=== PATIENT | female | born 1980 | race Caucasian/White ===

== ENCOUNTER 2018-01-10 08:31 | Emergency (ER) | payer MEDICAID ==
[~2018-01-10] VITALS: Ht 170.2 cm; Wt 90.7 kg
[~2018-01-10 08:31] MED LIST: AUGMENTIN 875-1 EACH PO; IBUPROFEN200 MG PO; IRON325 M1; NORCO 10-325 T1 EACH PO; NORCO 7.5-3251 EACH PO; PENICILLIN V P250 MG PO; PRENATAL-FOLIC1 EACH PO; ULTRAM50 MG PO; ZITHROMAX250 MG PO
[2018-01-10] MEDS ORDERED: WOMEN'S DAILY1 EACH PO (08:47)
[2018-01-10] MEDS ORDERED: ZITHROMAX250 MG PO (10:33)
[2018-01-10] MEDS ORDERED: NORCO 5-325 TA1 EACH PO (10:33)
== END 2018-01-10 11:00 | disposition home or self-care (01) ==
LOC: ED 08:31
DX: N39.0 Urinary tract infection, site not specified (principal); N70.91 Salpingitis, unspecified; F17.200 Nicotine dependence, unspecified, uncomplicated; Z79.899 Other long term (current) drug therapy
CPT/HCPCS: 76830; 76856; 80053; 81001; 84703; 85025; 87088; 96361; 96374; 96375; 99284; J1885; J2405; J7030

== ENCOUNTER 2022-09-16 01:20 | Emergency (ER) | payer OTHER ==
[~2022-09-16] VITALS: Ht 170.2 cm; Wt 86.2 kg
[~2022-09-16 01:20] MED LIST changes: +NORCO 5-325 TA1 EACH PO; +WOMEN'S DAILY1 EACH PO
[2022-09-16] MEDS ORDERED: ONDANSETRON ODT8 MG PO (03:04)
== END 2022-09-16 03:30 | disposition home or self-care (01) ==
LOC: ED 01:20
DX: R10.84 Generalized abdominal pain (principal); F17.200 Nicotine dependence, unspecified, uncomplicated
CPT/HCPCS: 36415; 80053; 81001; 83690; 83735; 84703; 85025; 96361; 96374; 99284-25; A9270; J2405; J7030

== ENCOUNTER 2022-09-17 10:11 | Inpatient (IN) | payer OTHER ==
[~2022-09-17] VITALS: Ht 170.2 cm; Wt 84.0 kg
[~2022-09-17 10:11] MED LIST changes: +ONDANSETRON ODT8 MG PO
--- OUTSIDE RECORDS SUMMARY | 2022-09-17 10:18 | XMS ---
PreManage Notification: RASHID CRUZ [employer] Events No recent Security Events currently on file CRITERIA MET - [facility] - 2 Visits in 30 Days CARE PROVIDERS There are no care providers on record at this time. Wally has no Care Guidelines for this patient. [place] [facility] (12 MO.) [facility] NOTE: Visits indicate total known visits. ED/C VISIT TRACKING (12 MO.) [facility]22 [facility] COMPLAINT: - VOMITING BLOOD 09/16/2022 01:21 VANIA Kerr OR TYPE: Emergency COMPLAINT: - VOMITING,FEVER,[place]ILLS INPATIENT VISIT TRACKING (12 MO.) No inpatient visits to display in this time frame [id number]
--- NOTE | 2022-09-17 15:00 | NUR ---
PT ARRIVES TO FLOOR VIA STRETCHER WITH ED RN - BEDSIDE REPORT RECEIVED. PT AAO, REPORTS NAUSEA AND PAIN. IV PATENT. NGT TO LIS, GREEN BILE IN SUCTION CANISTER. ADMIT ASSESSMENT COMPLETE. PT ORIENTED TO ROOM AND CALL LIGHT. UP TO BATHROOM TO VOID, STEADY ON FEET.
--- NOTE | 2022-09-17 15:30 | NUR ---
PRN MORPHINE ADMINISTERED FOR 5/10 PAIN IN ABD. PT DENIES FURTHER NEEDS. PT DENIES NICOTINE PATCH OR LOZENGE.
--- NOTE | 2022-09-17 16:45 | NUR ---
RN IN ROOM TO ASK FURTHER MODEL MAKER PLASTIC HISTORY AT REQUEST OF DR. FIGUEROA. PT STATES SHE HAS REGULAR MENSES THAT ARE NOT HEAVY OR OVERLY PAINFUL IN NATURE. LAST MENSES ENDED DAYS AGO AND PT DENIES UNPROTECTED SEX SINCE THEN. ONLY ABD HISTORY IS CSECTION AND MARIANO.
--- NOTE | 2022-09-17 17:10 | NUR ---
Spoke with pt. She is resting in bed with NG in place. 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 She [place] in [place] [employer] [facility] [employer]. She lives with her rashida and her 3 children. States she has let her food stamps lapse. She uses [employer] for energy assistance. Pt states she does not have issues getting in or out of her home. Plans on dc to home with rashida when medically cleared.
--- NOTE | 2022-09-17 18:22 | NUR ---
RN ROUNDING ON PT - ASLEEP IN BED WITH EYES CLOSED. RR EVEN AND UNLABORED. CALL LIGHT ON SIDE.
--- NOTE | 2022-09-17 19:25 | NUR ---
ASSUMED CARE OF PT UPON RECEIVING BEDSIDE HANDOFF REPORT FROM DAY NURSE. PT AOX4, NAD, NO C/O. NGT PATENT AND CONNECTED TO LIS. IVF INFUSING WITHOUT COMPLICATION. WILL CONTINUE TO MONITOR AND FOLLOW POC.
--- NOTE | 2022-09-17 20:06 | NUR ---
PLACED CALL TO TELEPHARMACY FOR ORDER/DOSE CLARIFICATION OF ANTI-EMETIC ORDER PRIOR TO ADMINISTRATION. PHARMACIST STATED 5MG COMPAZINE IS EFFECTIVE STARTING DOSE. WILL MEDICATE PER MAR, CONTINUE TO MONITOR AND FOLLOW POC.
--- NOTE | 2022-09-18 06:14 | NUR ---
PT WITH NO ACUTE OVERNIGHT EVENTS. VSS, NAD, NO C/O. PAIN AND NAUSEA WERE WELL-CONTROLLED. WILL HAND OFF CARE OF PT TO DAY NURSE DURING BEDSIDE REPORT.
--- NOTE | 2022-09-18 07:24 | NUR ---
REPORT RECEIVED FROM REAGAN VARGAS. PT RESTING IN BED ON BACK WITH HEAD OF BED AT 25 DEGREES WITH EYES CLOSED. RESPIRATIONS EVEN AND UNLABORED. NG TUBE IN PLACE WITH GREEN/BROWN DRAINAGED TO LOW INTERMITTANT WALL SUCTION. PT ALLOWED TO REST. CALL LIGHT WITHIN REACH. BED RAILS UP.
--- NOTE | 2022-09-18 09:13 | NUR ---
MORNING ASSESSMENT AND MEDICATION DUE. PT RETURNED FROM X-RAY. PT REPORTS NAUSEA AND STATES SHE "THREW UP WHILE I WAS DOWN THERE." SEE MAR FOR MEDICATION GIVEN. PT REPORTS 4/10 ABDOMINAL PAIN IN EPIGASTRIC AREA, PT DECLINES PAIN MEDICATION AT THIS TIME. IV FLUIDS RESTARTED. PT ALERT AND OREINTED TO ALL. ABDOMEN APPEARS MILDLY DISTENDED. BOWEL TONES RARE. ABDOMEN TENDER WITH PALPATION. UMBILICAL HERNA SEEN. NG TUBE REMAINS IN PLACE TO LOW INTERMITTAN SUCTION WITH MODERATE AMOUNTS OF GREEN DRAIANGE NOTED. NG SECURMENET DEVICE CHANGED IT WAS LOOSE. CEPACOL LOSANGE PROVIDED FOR SORE THROAT R/T NG TUBE. NO ADDITONAL REQUESTS OR COMPLAINTS. CALL [facility] WITHIN REACH. BED RAILS UP.
[2022-09-18] MEDS ORDERED: WOMEN'S DAILY1 EACH PO (09:52)
--- NOTE | 2022-09-18 09:52 | NUR ---
MED REC COMPLETE
--- NOTE | 2022-09-18 10:11 | NUR ---
THIS RN TO ROOM TO CHECK ON PT. DR. FIGUEROA UPDATED ON PT STATUS AND ASSESSMENT, NO NEW ORDERS AT THIS TIME. PT REPORTS 7/10 PAIN IN EPIGASTRIC AREA AND REQUESTS PAIN MEDICATION. PT STATES SHE DOES NOT WANT THE MORPHINE AND WOULD PREFERE TORADOL, EDUCATION DONE WITH PT REGARDING KIDNEY FUNCTION. PT VERBALIZES UNDERSTANDING AND STATES SHE WOULD STILL LIKE TORADOL. PT DENEIS ADDITIONAL REQUESTS OR COMPLAINTS. CALL LIGHT WITHIN REACH. BED RAILS UP.
--- NOTE | 2022-09-18 10:30 | NUR ---
INTO SEE PATIENT, PATIENT SITTING UP AT BEDSIDE. SHE STATES SHE IS WAITING TO SPEAK WITH DR. FIGUEROA ABOUT GOING TO THE OR THIS AFTERNOON. NO QUESTION OR CONCERNS AT THIS TIME FROM THE PATIENT. ADVISED THAT WE WILL BE BACK TO VISIT HER DURING HER STAY.
--- NOTE | 2022-09-18 11:14 | NUR ---
THIS RN TO ROOM TO CHECK ON PT. PT RESTING IN BED. CHG WIPE DOWN COMPLETE ANTICIPATING POSSIBLE SURGERY. PT REPORTS 2/10 PAIN IN EPIGASTRIC ABDOMEN THAT IS "MUCH BETTER." PT REPORS NAUSEA IS WELL CONTROLLED. PT UPDATED ON PLAN OF CARE. NG TUBE REMAINS TO LOW INTERMITTANT SUCTION. NO ADDITIONAL REQUESTS OR COMPLAINTS. CALL LIGHT WITHIN REACH. BED RAILS UP.
--- NOTE | 2022-09-18 11:27 | NUR ---
AT 1030 KNOCKED ON HER DOOR AND SHE SAID SHE JUST FINISHED HER SURGICAL WIPE DOWN. CHANGED HER GOWN. ASKED HER IF SHE WOULD LIKE TO SHAMPOO HER HAIR AND SHE SAID YES. SO SHAMPOOED HER HAIR. KATHY ALEJANDRE BRAIDED HER HAIR.
--- NOTE | 2022-09-18 12:21 | NUR ---
THIS RN TO ROOM TO CHECK ON PT. PT RESTING WITH EYES CLOSED, RESPIRATIONS EVEN AND UNLABORED. NG TUBE REMAINS TO LOW INTERMITTANT SUCTION. BED RAILS UP. CALL LIGHT WITHIN REACH. PT ALLOWED TO REST.
--- NOTE | 2022-09-18 13:13 | NUR ---
pT CALL LIGHT ON. IV PUMP ALARMING, IV FLUID BAG EMPTY. NEW BAG HUNG. PT UP TO RESTROOM, STEADY ON FEET WITH NO ASSISTANCE NEEDED. NG TUBE CLAMPED FOR AMBULATION. PT BACK TO BED AND NG TUBE RETURNED TO LOW INTERMITTANT SUCTION. CEPACOLE LOSANGE PROVIDED PER PT REQUEST. PT DENIES PAIN AND NAUSEA. NO ADDITIONAL REQUESTS OR COMPLAINTS. CALL LIGHT WITHIN REACH. BED RAILS UP.
--- NOTE | 2022-09-18 14:13 | NUR ---
AFTERNOON ASSESSMENT AND MEDICATION DUE. PT REPORTS 5/10 PAIN IN EPIGASTRIC ABDOMEN AND MILD NAUSEA. PT REQUESTS MEDICATIONS FOR BOTH. SEE MAR FOR MEDICATION GIVEN. PT REMAINS ALERT AND OREINTED TO ALL. ABDOMEN REMAINS SOFT AND MILDY TENDER IN EPIGASTRIC AREA. PT DENIES ANY FLANK PAIN. BOWEL TONES RARE. PT CONTINUES TO DENY ANY ABDOMINAL DISTENTION. NG TUBE REMAINS TO LOW INTERMITTANT SUCTION WITH GREEN DRAINAGE NOTED. CANSTER CHANGED, 75 ML OF GREEN FLUID RECORDED. PT VOIDING QUANITTY SUFFICIENT, ALTHOUGH URINE IS NOTED TO BE DARK YELLOW. UMBILICAL HERNA UNCHANGED IN APPEARANCE. PT DENIES ADDITIONAL REQUESTS OR COMPLAINTS. CALL LIGHT WITHIN REACH. BED RAILS UP.
--- NOTE | 2022-09-18 14:50 | NUR ---
DR. FIGUEROA TO BEDSIDE TO ROUND ON PT. PLAN OF CARE AND FOR SURGERY REVIEWED WITH PT. PT VERBALIZES UNDERSTANDING OF PLAN OF CARE AND PLAN FOR SUGERY. PT AND PTS MOTHER IN LAW STATE THEIR QUESTIONS HAVE BEEN ANSWERED AND AGREE TO PLAN OF CARE. ORDERS GIVEN FOR AN ADDITIONAL ABX, FLAGYL 500MG X1. ORDERS ENTERED, REPEAT BACK PERFORMED. CONSENT SIGNED. SCD'S IN PLACE. CHG WIPE DOWN COMPLETED. NO ADDTIONAL NEEDS AT THIS TIME. CHARGE NURSE UPDATED. CALL LIGHT WITHIN REACH. BED RAILS UP. FLAGYL IN PLACE PRE OP ABX, TO BE GIVEN IN OR.
--- NOTE | 2022-09-18 15:00 | NUR ---
PATIENT DID A SURGICAL WIPE DOWN. NEW GOWN AND SOCKS AND SCDS ARE ON. PATIENT IS LAYING IN BED WATCHING TV. MADE A PHONE CALL.
--- NOTE | 2022-09-18 15:54 | NUR ---
THIS RN TO ROOM TO CHECK ON PT. PT RESTING IN BED, PT UPDATED ON PLAN OF CARE AND STATES HER QUESTIONS HAVE BEEN ANSWERED. PT REPORTS PAIN AND NAUSEA ARE WELL CONTROLLED AND DENIES NEED FOR ADDITIONAL MEDICAITONS. NG TUBE REMAINS TO LOW INTERMITTANT SUCTION. NO ADDITIONAL REQUESTS OR COMPLAINTS. CALL LIGHT WITHIN REACH. BED RAILS UP.
--- NOTE | 2022-09-18 16:15 | NUR ---
REPORT GIVEN TO NELL WYATT RN. PT TRANSFERED SELF TO OR STRETCHER. NG TUBE CLAMPLED FOR TRANSFER. IV SWITCHED TO OR FLUIDS. NO ADDITIONAL REQUESTS OR QUESTIONS.
--- NOTE | 2022-09-18 17:06 | NUR ---
PT HERE FOR SMALL BOWEL OBSTRUCTION AND COMPLEXT PELVIC MASS. PT UP WITH STAND BY ASSIST FOR LINE AND TUBE MANAGEMENT THIS SHIFT. PT REMAINS NPO RELATED TO BOWEL OBSTRUCTION AND FOR PRE-OP THIS SHIFT. ABDOMEN SOFT BUT TENDER TO TOUCH. PRN PAIN AND NAUSEA MEDICATIONS GIVEN. BOWEL TONES RARE. NG TUBE IN PLACE WITH MODERATE AMOUNTS OF GREEN DRAINAGE. PT TO OR THIS AFTERNOON, AWAITING RETURN. PT VOIDING QUANTITY SUFFICIENT, ALTHOUGH MINIMAL. PT USES CALL LIGHT AND MAKES NEEDS KNOWN.
--- NOTE | 2022-09-18 20:45 | NUR ---
INFORMED BY PEANUT FARMER THAT pt IS TO GO TO CCU FOLLOWING SURGERY [facility] PRIMARY RN NICOLE MADE AWARE. FIANCEE TO FLOOR AND ASKING ABOUT pt, ASSISTED TO CCU BY PEANUT FARMER.
--- NOTE | 2022-09-18 21:06 | NUR ---
09/18/[id number] Kinza Butcher 2052 PATIENT INTO ROOM 129. REPORT RECIEVED FROM TAMIKO JORGENSEN. PATIENT NON REACTIVE. PATIENT BREATHING EQUAL AND UNLABORED. OXYGEN SATURATIONS ABOVE 95% ON 6 LITERS VIA NASAL CANNULA. SR ON TELE. INTERMITTENT SUCTION ON. SCD'S ON. IVF INFUSING. SURGICAL SITE IS CLEAN, DRY AND INTACT. LACIE DRAIN INTACT.
--- NOTE | 2022-09-18 21:30 | NUR ---
ASSUMED CARE OF PT UPON RECEIVING BEDSIDE HANDOFF REPORT FROM PACU NURSE. PT DROWSY, BUT EASILY AROUSED. VSS, NAD, NO C/O. WILL CONTINUE CLOSE MONITORING AND FOLLOW POC.
--- NOTE | 2022-09-19 01:06 | NUR ---
PT SLEEPING, EASILY AROUSED. VSS, NAD. PT DECREASING AFTER PAIN MEDS ADMINISTERED. ALL DRAINS AND LINES INTACT AND PATENT. NO CHANGE FROM PREVIOUS ASSESSMENT. WILL CONTINUE CLOSE MONITORING AND FOLLOW POC.
--- NOTE | 2022-09-19 03:55 | NUR ---
PT SLEEPING, EASILY AROUSED. VSS. NO CHANGE FROM PREVIOUS ASSESSMENT. WILL CONTINUE CLOSE MONITORING AND FOLLOW POC.
--- NOTE | 2022-09-19 06:40 | NUR ---
PT SLEEPING BUT EASILY AROUSED. NO ACUTE OVERNIGHT EVENTS. VSS, NAD, NO C/O. PT DEMONSTRATING GOOD USE OF IS, IVF INFUSING WITHOUT ISSUE. WILL HAND OFF CARE OF PT TO DAY NURSE DURING HANDOFF REPORT.
--- NOTE | 2022-09-19 07:30 | NUR ---
ASSUMING CARE OF PT. RECEIVED REPORT FROM ECHO KIRK.
--- NOTE | 2022-09-19 08:24 | NUR ---
VS AND INTAKE/OUTPUT COMPLETED. FRESH WASHCLOTH AND ICE PROVIDED.
--- NOTE | 2022-09-19 08:43 | NUR ---
MORNING ASSESSMENT COMPLETED. PT HAS NGT, VERMA CATHETER AND RIGHT SIDE ABD LACIE IN PLACE. PT COMPLAINT OF PAIN- PAIN MEDICATION PROVIDED. PT BOWEL TONES ACTIVE ON LEFT SIDE AND HYPO ACTIVE ON RIGHT. PT LUNG SOUNDS CLEAR. PT MOVES ALL FOUR EXTREMITIES INDEPENDENTLY. PT ALERT AND ORIENTED, PERRLA. PT HAS ACTEKOTE SURGICAL DRESSING MID ABD WITH SCANT DRAINAGE NOTED IN CENTER. PT DENIES PASSING GAS.
--- NOTE | 2022-09-19 09:30 | NUR ---
PT ASSISTED TO CHAIR WITH 1PA. PT TOLERATED WELL. CALL LIGHT AND PT BELONGINGS AT BEDSIDE. PT DENIES BLANKET AND OTHER NEEDS.
--- NOTE | 2022-09-19 10:12 | NUR ---
PT CALLED, REQUESTING TO MOVE BACK TO BED, STATING SHE IS NAUSEATED. PT 1PA BACK TO BED. PT TOLERATED WELL. CALL LIGHT WITHIN REACH AND BEDRAIL UP FOR SAFETY. PHARMACY CALLED NAUSEA MEDICATION OUT OF STOCK.
--- NOTE | 2022-09-19 11:49 | NUR ---
PER PT REQUEST, PAIN AND NAUSEA MEDICATION PROVIDED WELL THROAT LOZANGE. AFTERNOON ASSESSMENT COMPLETED WELL VS AND INTAKE/OUTPUT. PT LUNG SOUNDS CLEARN, BOWEL TONES ACTIVE ON LEFT AND HYPOACIVE ON RIGHT. PT HAS LACIE ON LEFT WITH 10ML OUT IN LAST THREE HOURS, NGT IN PLACE WITH 125ML OUT IN LAST THREE HOURS AND VERMA WITH 150ML OUT. PT SURGICAL DRESSING INTACT WITH NO CHANGE FROM EARLIER ASSESSMENT. PT RESTING IN BED WATCHING TV WITH CALL LIGHT WITHIN REACH AND BEDRAIL UP FOR SAFETY.
--- NOTE | 2022-09-19 12:35 | NUR ---
DR FIGUEROA AT BEDSIDE ASSESSING PT AND DISCUSSING PLAN OF CARE TYO MOVE TO MS FLOOR. PT VERBALIZED UNDERSTANDING.
--- NOTE | 2022-09-19 12:40 | NUR ---
VERMA CATHETER REMOVED. PT ASSISTED TO BATHROOM WITH 1PA.
--- NOTE | 2022-09-19 13:02 | NUR ---
REPORT GIVEN TO PARADISE KIRK.
--- NOTE | 2022-09-19 13:07 | NUR ---
REPORT RECEIVED FROM REAGAN VIERA. AWIATING PTS ARRIVAL TO MED/SURG
--- NOTE | 2022-09-19 13:21 | NUR ---
PT PLACED ON TELE#6. CCU INSTITUTION LIBRARIAN REMOVED. PT ASSISTED 1PA TO CHAIR. INFORMED OF TRANSFER TO CCU.
--- NOTE | 2022-09-19 13:28 | EKG ---
[facility] [address] [facility] [address] [place] [address] Signed Sinus tachycardia Nonspecific ST abnormality Abnormal ECG No previous ECGs available Confirmed by ASTER SANCHES MD ([id number]) on 09/19/2022 1:28:12 PM Electronically Signed By: ASTER SANCHES MD 09/19/22 1328 PATIENT NAME: RASHID CRUZ Electrocardiogram DATE OF : 84 PHYSICIAN: ASTER SANCHES MD REPORT #: [id number] REPORT IS CONFIDENTIAL AND NOT TO BE RELEASED WITHOUT AUTHORIZATION
--- NOTE | 2022-09-19 14:07 | NUR ---
PT ARRIVED FROM CCU BY CHAIR. PT REPORTS FEELING NAUSEATED AND WOULD LIKE TO GET BACK TO BED. 1 PERSON ASSIST FOR LINE AND TUBE MANGEMENT BACK TO BED. NG TUBE RETURNED TO LOW INTERMITTANT SCUTION. ZOFRAN GIVEN. PT REPORTS THESE ACTIONS "REALLY HELP" THE NAUSEA. PT REPORTS 8/10 PAIN IN ABDOMEN. SEE MAR FOR MEDICATION GIVEN. NEW IV STARTED PER PROTOCOL TO LEFT FORARM FOR IV ABX ADMINISTRATION, BRISK BLOOD RETURN NOTED. PT REPORTS SORNESS TO RIGHT AC IV SITE RELATED POTASSIUM. POTASSIUM INFUSION MOVED TO NEW IV SITE. IV ABX INFUSING THROUGH RIGHT AC IV. PT ALERT AND OREINTED TO ALL ALTHOUGH REPORTS DROWSINESS WITH PAIN MEDICATION. PT REPORTS PAIN IMPROVES TO 4/10 AFTER 20 MINUTES OF PAIN MEDICATION. NEW DRESSING PLACED TO NOSE/NG TUBE SITE CURRENT DRESSING IS LOOSE. ABDOMEN REMAINS SOFT, BUT TENDER. RIANA TONES ACTIVE ON LEFT SIDE, HYPOACTIVE ON RIGHT SIDE. MID LINE DRESSING SHOWS SCANT AMOUNT OF OLD DRAINAGE. AYLIN CONFIRMS AT BEDSIDE THAT NO NEW DRAIANGE IS SEEN. PT TAKIGN SIPS OF ICE WATER FOR COMFORT. SMALL AMOUNT OF SEROUSANGUINOUS DRAIANGE NOTED IN LACIE BULB, SITE REMAINS WNL. PT RESTING WITH EYES CLOSED, RESPIRATIONS EVEN AND UNLABORED. CALL LIGHT WITHIN REACH.B ED RAILS UP.
--- NOTE | 2022-09-19 15:05 | NUR ---
THIS RN TO ROOM TO CHECK ON PT. PT RESTINGIN BED WITH HEAD OF BED AT 26 DEGREES. PT REPORTS 6/10 PAIN IN ABDOMEN AND REQUESTS ADDITIONAL PAIN MEDICATION, SEE MAR FOR MEDICATION GIVEN. FAMILY AT BEDSIDE. PT REPORTS NASUEA REMAINS RESOLVED. ICE WATER REFILLED PER PT REQUEST. NG TUBE REMAINS OT LOW INTERMITTANT SUCTION. PT PLACED ON CPOX RELATED TO FREQUENT PAIN MEDICATION ADMINISTRATION. PT TOLERATING ROOM AIR WITH OXYGNE SATUARTION OF 96%. NO ADDITIONAL REQUESTS OR COMPLAINTS. CALL LIGHT WITHIN REACH. BED RAILS UP.
--- NOTE | 2022-09-19 16:13 | NUR ---
THIS RN TO ROOM TO CHECK ON PT. PT RESTING IN BED, SEMIFOWLER POSITION. PT REPORTS 3/10 PAIN IN ABDOMEN AND REPORTS PAIN IS WELL CONTROLLED. PT DENIES NEED FOR PAIN MEDICATION AT THIS TIME. PT REPORTS NASUEA CONTINUES TO BE RESOLVED. PT DENIES ADDITIONAL REQUESTS OR COMPLAINTS. CALL LIGHT WITHIN REACH.
--- NOTE | 2022-09-19 17:02 | NUR ---
PT CALL LIGHT ON. PT REQUESTS PAIN AND NAUSEA MEDICATIONS. PT REPORTS 5-6/10 ABDOMINAL SURGICAL SITE PAIN. SEE MAR FOR MEDICATION GIVEN. 1 PERSON ASSIST FOR LINE AND TUBE MANAGEMENT UP TO RESTROOM. PT STEADY ON FEET. PT VOIDS CLEAR YELLOW URINE WITHOUT ISSUE. PORTER CARE PER PT. STAND BY ASSIST BACK TO BED. PT VISITING WITH FRIENDS. CLEAR LIQUID TRAY DELIVERED TO PT. PT ENCROUAGED TO TAKE ANY PO INTAKE SLOWLY. NG TUBE REMAINS TO LOW INTERMITTANT SUCTION. NO ADDITIONAL REQUESTS OR COMPLAINTS. CALL LIGHT WIHTIN REACH. BED RAILS UP.
--- NOTE | 2022-09-19 17:44 | NUR ---
PT ARRIVED FROM CCU THIS SHIFT. POST OP DAY 1 AFTER MULTIPLE ABDOMINAL PROCEEDURES. PT UP WITH STAND BY ASSIST FOR LINE AND TUBE MANAGEMENT THIS SHIFT. PT ALLOWED TO HAVE CLEAR LIQUID DIET ALTHOUGH NAUSEA CONTINUES AND NG TUBE REMAINS IN PLACE TO LOW INTERMITTANT SUCTION. GREEN FLUID NOTED IN NG CANISTER THIS SHIFT. MIDLINE INCISION SHOWS SMALL AMOUNT OF OLD DRAINAGE, NO NEW DRAINAGE NOTED THIS SHIFT. LACIE DRAIN IN PLACE WITH SMALL AMOUNT OF SEROUSANGUINOUS DRAINAGE NOTED THIS SHIFT. PRN PAIN AND NAUSEA MEDICATIONS GIVEN FREQUENTLY. VERMA CATHETER REMOVED THIS SHIFT. PT VOIDING QUANITTY SUFFICIENT. PT TOLERATING ROOM AIR WITH OXGYEN SATURATION ABOVE 92%. IV ABX AND POSTASSIUM GIVEN THIS SHIFT. PT USES CALL LIGHT AND MAKES NEEDS KNOWN.
--- NOTE | 2022-09-19 17:56 | NUR ---
THIS RN TO ROOM TO CHECK ON PT. PT REPORTS ABDOMINAL PAIN IS "MUCH BETTER" NOW AT 3/10. PT DENIES NEED FOR ADDITIONAL PAIN MEDICATION. PT REPORTS NAUSEA HAS RESOLVED. NG TUBE REMAINS TO LOW INTERMITTANT SUCTION. OXGYEN SATURATION OF 96% ON ROOM AIR. PT DENIES ADDITIONAL REQUESTS OR COMPLAINTS. CALL LIGHT WITHIN REACH. BED RAILS UP.
--- NOTE | 2022-09-19 18:48 | NUR ---
THIS RN TO ROOM TO CHECK ON PT. PT RESTING WITH EYES CLOSED. RESPIRATIONS EVEN AND UNLABORED, OXYGEN SATURATIONS OF 96% ON ROOM AIR. CALL LIGHT WITHIN REACH. BED RAILS UP. PT ALLOWED TO REST.
--- NOTE | 2022-09-19 19:20 | NUR ---
SHIFT REPORT RECEIVED FROM PARADISE KIRK, PT APPEARS TO SLEEP, EYES CLOSED, RESP EVEN AND REG.
--- NOTE | 2022-09-19 20:26 | NUR ---
CALL LIGHT ANSWERED, pt UP SBA TO VOID. 270MLS DARK YELLOW/RAYNE COLORED URINE NOTED. pt BACK TO BED, NG TUBE RESUMED TO MEDIUM INTERMITTENT WALL SUCTION, PATENT WITH GREEN OUTPUT. LACIE DRAIN EMPTIED WITH 15MLS SEROSANGUINEOUS DRAINAGE. ABD DRESSING INTACT WITH SCANT SPOT SHADOWING. IV SITE WNL, FLUIDS INFUSING WNL. pt REPORTS SOME NAUSEA AND PAIN, PRIMARY RN NICOLE NOTIFIED. FRESH WATER PROVIDED. NO ADDITIONAL NEEDS OR CONCERNS AT THIS TIME. CALL LIGHT IN REACH.
--- NOTE | 2022-09-19 20:50 | NUR ---
4MG IV MORPHINE AND 4MG IV ZOFRAN GIVEN FOR REPORTED NAUSEA AND 7/10 ABD PAIN, pt REPORTS 5 IS TOLERABLE. pt EDUCATED ON BENEFITS OF MEDICATIONS AND VERBALIZED UNDERSTANDING. pt ALSO EDUCATED ON USE OF TORADOL IN PLACE OF NARCOTICS ONCE URINE OUTPUT IMPROVES NARCOTICS CAN SLOW BOWELS. pt VERBALIZED UNDERSTANDING. NO ADDITIONAL NEEDS OR CONCERNS AT THIS TIME, CPOX IN PLACE.CALL LIGHT IN REACH.
--- NOTE | 2022-09-19 21:43 | NUR ---
ROUNDED ON pt TO REASSESS PAIN, pt RESTING IN BED WITH EYES CLOSED AND ON RA, RR EVEN AND UNLABORED. NO DISTRESS NOTED. WILL MONITOR, CALL LIGHT IN REACH.
--- NOTE | 2022-09-19 23:00 | NUR ---
PT AWAKE AND ALERT, UP TO BR TO VOID 100ML RAYNE URINE, GAIT STEADY, BACK TO BED, ASSESSMENT COMPLETED, NEW FILTER TO NG TUBE PER GEORGINA RN, NG REMAINS MED INTERMITTANT SX, DRAINING GREEN FLUID, RIGHT ARM AC SL TENDER, PT DESIRES SL TO BE REMOVED, IV REMOVED PER GEORGINA RN INTACT. PT ATTEMPTING TO REST, FRESH WATER GIVEN.
--- NOTE | 2022-09-20 00:50 | NUR ---
PT APPEARS TO SLEEP, RESP EVEN AND REG, WITHOUT DISTRESS.
--- NOTE | 2022-09-20 01:00 | NUR ---
RN CALLED TO ROOM TO CHECK NG, REPORTS MAKING LOUDER SX NOISES, CONSULTED CHARGE NURSE, ALEC RN TO BEDSIDE, NG CHECKED AND APPEARS TO BE FUNCTIONING WELL, PT REASSURED AND ATTEMPTING TO REST.
--- NOTE | 2022-09-20 02:05 | NUR ---
PT AWAKE, UP TO BR TO VOID, VOIDED 300ML RAYNE URINE, BACK TO BED, REQUESTING PAIN MED, MEDICATED WITH MORPHINE 4MG IV PER ORDER, IV PATENT AND SITE INTACT. ABDOMINAL DRESSING WITH OLD SCANT DRAINAGE, LACIE PATENT AND DRAINING SERO SANG FLUID, VS STABLE, NG BACK TO SX WHEN SHE RETURNED TO ROOM, MED INTERMITANT SX, CONTS GREEN DRAINAGE. FRESH WATER GIVEN AND PT RESTING QUIETLY.
--- NOTE | 2022-09-20 02:11 | NUR ---
PT MEDICATED WITH ZOFRAN 4MG FOR REQUEST FOR NAUSEA, PT RESTING WITHOUT OTHER REQUESTS.
--- NOTE | 2022-09-20 03:25 | NUR ---
PT ASLEEP, RESP EVEN AND REG, WITHOUT DISTRESS.
--- NOTE | 2022-09-20 04:08 | NUR ---
CALL LIGHT ANSWERED, pt AWAKE AND REPORTS 7/10 PAIN TO ABD, PRN PAIN MEDICATION PROVIDED-SEE EMAR. VSS AND I&O'S CHARTED. NG TUBE CLAMPED BRIEFLY TO ALLOW pt TO VOID. pt BACK TO BED, NG TUBE RESUMED. NO ADDITIONAL NEEDS OR CONCERNS VERBALIZED, CALL LIGHT IN REACH.
--- NOTE | 2022-09-20 05:00 | NUR ---
PT ASLEEP, RESP REG WITHOUT REQUESTS.
--- NOTE | 2022-09-20 06:37 | NUR ---
PT AWAKE, ALERT, UP TO BR TO VOID, GAIT STEADY, BACK TO BED, REQUESTED MORPHINE AND NAUSEA MEDICINE, MED WITH 4MG MORPHINE FOR SURGICAL PAIN, IF PATENT, RT A/B GIVEN PER ORDER, ASSESSMENT COMPLETED.
--- NOTE | 2022-09-20 06:43 | NUR ---
PT MEDICATED WITH COMPAZINE 5MG FOR C/O NAUSEA PER REQUEST, NG APPEARS TO BE DRAINING WELL, PT RESTING QUIETLY WITH EYES CLOSED, WITHOUT DISTRESS.
--- NOTE | 2022-09-20 07:34 | NUR ---
REPORT RECEIVED FROM REAGAN RIVERA. PT RESTING IN BED, SEMIFOWLER POSITION, WITH EYES CLOSED. REPIRATIONS EVEN AND UNLABORED, OXYGEN SATURATION 95% ON CPOX. HEART RATE 80-90'S ON TELEMETRY MONITORING, NORMAL SINUS RYTHEM NOTED. PT ALLOWED TO REST. CALL LIGHT WITHIN REACH. BED RAILS UP.
--- NOTE | 2022-09-20 08:59 | NUR ---
MORNING ASSESSMENT AND MEDICATION DUE. PT RESTING IN BED, WATCHING TV AND TAKING SPIPS OF CLEAR LIQUID BREAKFAST. PT REPORTS NAUSEA AND 6/10 PAIN IN ABDOMEN. SEE MAR FOR MEDICATIONS GIVEN. PT REPORTS SHE DOSE NOT THINK HER NG TUBE IS WORKING. NG TUBE REMAINS AT THE SAME LEVEL AT NARES. LINE FLUSHED WITH 100ML TAP WATER. SUCTION REAPPLIED, 500ML GREEN FLUID REMOVED FROM STOMACH BY WALL SUCTION. PT REPORTS "THAT HELPS A LOT." NG TUBE RETURNED TO LOW INTERMITTANT WALL SUCTION. PT UP TO RESTROOM WITH STAND BY ASSIST, VOIDS 200ML CLEAR RAYNE URINE. PORTER CARE PER PT. PT UP TO CHAIR. LACIE DRAIN NOTED TO BE LOOSE AT SIGHT WITH STITCHES NO LONGER HOLDING DRAIN IN PLACE. NIRAJ REMAINS INCERTED TO STITCH POINT. DRAIN SEGURED TO DRESSING AND STAFF UPDATED TO BE CAUTIOUS WHEN MOVING PT. DRAIN EMPTIED OF 80ML SEROUSANGUINOUS DRAINAGE. MID LINE INCISION W/N/L WIHT NO NEW DRAINAGE NOTED. SMALL DIME SIZED SPOT OF OLD DRAINAGE/SHADOWING NOTED. BOWEL TONES RARE. ABDOMEN SOFT BUT TENDER TO TOUCH. TELEMETRY MONITORING REMAINS IN PLACE WITH HEART RATE 80-90'S WITH REST AND 100-120'S WITH ACTIVITY. OXGYEN SATURATION 96% ON ROOM AIR. CPOX IN PLACE. PT DEMONSRATES USE OF I.S. REACHIGN 2250ML X5. NO ADDITIONAL REQUESTS OR COMPLAINTS. CALL LIGHT WITHIN REACH. BED RAILS UP. WARM BLANKETS PROVIDED.
--- NOTE | 2022-09-20 10:25 | NUR ---
THIS RN TO ROOM TO CHECK ON PT. PT REPROTS SHE HAS STARTED HER PERIOD AND IS USING A TAMPON FROM HOME. PADS PROVIDED. PT CALLING FAMILY FOR SUPPLIES. PT REPORTS PAIN IS "MUCH BETTER" NOW AT 3/10 IN ABDOMEN, PT DENIES NEED FOR ADDITIONAL PAIN MEDICATION. PT REPORTS NAUSEA HAS RESOLVED. NG TUBE REMAINS TO LOW INTERMITTANT SUCTION. LACIE DRAIN REMAINS IN PLACE WITH SMALL AMOUNT OF SEROUS ANGUINOUS DRAINAGE NOTED IN BULB. NO ADDITIONAL REQUESTS OR COMPLAINTS. CALL LIGHT WITHIN REACH. BED RAILS UP.
--- NOTE | 2022-09-20 11:22 | NUR ---
THIS RN TO ROOM TO CHECK ON PT. PT RESTING IN BED, WATCHING TV AND VISITING WITH HER MOTHER. PT REPORTS PAIN REMAINS WELL CONTROLLED AT 3/10 AND DENIES NASUEA. 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 PT REPORTS SHE HAS BEEN TAKING SIPS OF ICE WATER. OXGYEN SATUARTION OF 96% ON ROOM AIR. NO ADDITIONAL REQUETS OR COMPLAINTS. CALL LIGHT WITHIN REACH. BED RAILS UP.
--- NOTE | 2022-09-20 12:02 | NUR ---
PT CALL LIGHT ON. PT REQUESTS ASSISTANCE UP TO RESTROOM. NG TUBE CLAMPED. PT UP TO RESTROOM WITH STAND BY ASSIST. PT VOIDS 2000ML RAYNE URINE. STAND BY ASSIST BACK TO BED. NG TUBE REUTRNE TO LOW INTERMITTANT SUCTION. PT REPORTS 6/10 PAIN AND INCREASING NASUEA AND REQUESTS MEDICATIONS, SEE MAR FOR MEDICATION GIVEN. NO ADDITIONAL REQUESTS OR COMPLAINTS. CALL LIGHT WITHIN REACH. BED RAILS UP. FAMILY AT BEDSIDE.
--- NOTE | 2022-09-20 12:38 | NUR ---
PT CALL LIGHT ON. PT REQUESTS ASSISTANCE UP TO RESTROOM. THIS RN TO ROOM. NG TUBE CLAMPED. PT AMBULATES TO RESTEROOM WITH STAND BY ASSIST. PORTER CARE PER PT. PT BACK TO BED. NG TUBE RETURNED TO LOW INTERMITTANT WALL SUCTION. OXGYEN SATURATIONS 98% ON ROOM AIR. PT REPORTS PAIN IS NOW 3/10 AND NAUSEA RESOLVED. PT TAKING SIPS OF CLEAR FLUIDS FOR LUNCH. NO ADDITIONAL REQUESTS OR COMPLAINTS. CALL LIGHT WITHIN REACH. BED RAILS UP.
--- NOTE | 2022-09-20 13:07 | NUR ---
DR FIGUEROA UPDATED ON PT STATUS AND ASSESSMENT INCLUDING LOOSE LACIE DRAIN, NG TUBE, THE START OF HER CYCLE, AND ASESSEMENT/PAIN/NAUSEA. ORDERS GIVEN TO DC TELE. ORDERS PLACED. TELEMETRY DC'D. NO ADDITONAL NEW ORDER AT THIS TIME. MD TO ROUND SOON.
--- NOTE | 2022-09-20 13:48 | NUR ---
THIS RN TO ROOM WITH DR. FIGUEROA FOR ROUNDS. PT UPDATD ON PLAN OF CARE. VERBALIZES UNDERSTANDING AND STATES HER QUESTIONS HAVE BEEN ANSWERED. DRESSING REMOVED FROM LACIE SITE BY . OPSITE APPLIED TO SECURE LACIE DRAIN. NO ADDITIONAL NEEDS AT THIS TIME. CALL LIGHT WITHIN REACH. BED RAILS UP.
--- NOTE | 2022-09-20 14:20 | NUR ---
AFTERNOON ASSESSMENT DUE. PT RESTING IN BED. PT REPORTS 6/10 PAIN IN ABDOMEN, SEE MAR FOR MEDICATION GIVEN. PT DENIES NAUSEA. PT ENCORUAGED TO AMBULATE AND STATES SHE WILL AFTER PAIN MEDICATION HAS TIME TO WORK. STAND BY ASSIST UP TO RESTROOM. PT VOIDS WITHOUT ISSUE. PORTER CARE PER PT. PT ALERT AND ORIENTD TO ALL. LUNG SOUNDS CLEAR. OXYGEN SATURATIONS REMAIN ABOVE 95%, CPOX DC'D. ABDOMEN REMAINS SOFT BUT TENDER WITH PALPATION. BOWEL TONES HYPOACTIVE THROUGHOUT. MID LINE DRESSING C/D/I WITH ONLY SCANT OLD SHADOWING, NO NEW DRAINAGE NOTED. LACIE DRAIN INTACT WITH 40ML SEROUSANGUINOUS DRAINAGE REMOVED FROM LACIE BULP, SITE WNL. 700ML LIGHT GREEN FLUID REMOVED FROM NG TUBE CANSITER, NEW CANISTER PLACED. NG TUBE REMAINS TO LOW INTERMITTAN SUCTION. NO ADDITIONAL REQUESTS OR COMPLAINTS AT THIS TIME. CALL LIGHT WIHTIN REACH. BED RAILS UP.
--- NOTE | 2022-09-20 16:03 | NUR ---
THIS RN TO ROOM TO CHECK ON PT. PT REPORTS SHE IS READY TO GET UP TO AMBLUATE. NG TUBE CLAMPED. PT UP TO RESTROOM AND THEN UP TO AMBULATE X1 LAP IN [place]. PT REPORTS "IT FEELS GOOD TO STRETCH MY LEGS." PT BACK TO ROOM. REPORTS MILD NAUSEA THAT STARTED PRIOR TO AMBULATION. NG TUBE RETURNED TO LOW INTERMITTANT SUCTION. ZOFRAN GIVEN. PT REPORTS PAIN HAS IMPROVED NOW 3/10 IN ABDOMEN. PT DENIES NEED FOR ADDITIONAL PAIN MEDICATION AT THIS TIME. NO ADDITIONAL REQUESTS OR COMPLAINTS. CALL LIGHT WITHIN REACH. BED RAILS UP.
--- NOTE | 2022-09-20 16:27 | NUR ---
POST OP DAY 2 AFTER MULTIPLE ABDOMINAL PROCEEDURES. PT UP WITH STAND BY ASSIST AND LINE AND TUBE MANAGEMENT THIS SHIFT TO CHAIR, RESTROOM AND TO AMBLUATE IN THE [place]. PT ALLOWED TO HAVE CLEAR LIQUID DIET ALTHOUGH NAUSEA CONTINUES AND NG TUBE REMAINS IN PLACE TO LOW INTERMITTANT SUCTION. GREEN FLUID NOTED IN NG CANISTER THIS SHIFT. MIDLINE INCISION SHOWS SMALL AMOUNT OF OLD DRAINAGE, NO NEW DRAINAGE NOTED THIS SHIFT. LACIE DRAIN IN PLACE WITH MODERATE AMOUNT OF SEROUSANGUINOUS DRAINAGE NOTED THIS SHIFT, DRAIN LOOSE AT INCERTION SITE AND SECURED WITH OPSITE, DRESSING REMOVED BY MD. PRN PAIN AND NAUSEA MEDICATIONS GIVEN FREQUENTLY. PRN PAIN MEDICATIONS ADJUSTED IN ATTMPET TO AVOID OPOIDS. PT HAS STARTED PER CYCLE. PT VOIDING QUANTITY SUFFICIENT. PT USES CALL LIGHT AND MAKES NEEDS KNOWN.
--- NOTE | 2022-09-20 16:31 | NUR ---
DR FIGUEROA CALLED REGARDING TORADOL FALLING OFF THE EMAR. DR. FIGUEROA STATES TO CONTINUE TORADOL FOR NUMBER OF DOSES RECCOMENDED BY PHARMACIST. GAYLE PHARMACIST CALLED AND UPDATED AND STATES SHE WILL ADJUST DOSES ALLOWED AND REORDER MEDICATION.
--- NOTE | 2022-09-20 17:13 | NUR ---
PT CALL LIGHT ON. PT REPORTS INCREASED NASUEA AND BELIEVES HER NG TUBE IS NOT LONGER WORKING. MINMIAL FLUID NOTED IN NG CANISTER, ATYPICAL OF OUTPUT TODAY. ATTEMPTED TO FLUSH NG TUBE WITH TAP WATER BY GRAVITY, WATER DOES NOT FLUSH BY GRAVITY, 100ML TAP WATER FLUSHED WITH PLUNGER. ATTEMPTED TO FLUSH 20ML BY GRAVITY, STILL DOES NOT FLUSH. RETURNED TUBE TO LOW INTERMITTANT SUCTION, NO RETURN SEEN. NG TUBE FLUSHED WITH AIR, PT BURPS BUT NO RETURN IS SEEN THROUGH NG TUBE TO LOW INTERMITTAN WALL SUCTION. REPOSITIONING ATTEMPTED, NO CHANGE. DR. FIGUEROA CALLED, ORDERS GIVEN FOR SINGLE VIEW CHEST X-RAY, ORDERS ENTERED. X-RAY CALLED. PT REPORTS "FEELING REALLY CRUMMY." IMAGING PERFORMED. IMAGE SENT TO DR. FIGUEROA PER HIS REQUEST. ORDERS GIVEN TO WITHDRAWL NG TUBE AT LEAS 8CM. NG TUBE WITHDRAWN 8CM, NO RETURN. WITH DRAWN 10CM, NO RETURN, WITHDRAWN 12CM, NO RETURN. LINE FLUSHED AGAIN WITH AIR. "POPPING" SENSATION FELT BY PT AND NURSE. 250ML GREEN RETURN IMMIDIATLY NOTED. PT REPROTS FEELING "MUCH BETTER." PT UP TO RESTROOM WITH STAND BY ASSIST. VOIDS WITHOUT ISSUE. NG TUBE REMAINS TO LOW INTERMITTAN SUCTION. SECURMENT DEVICE IN PLACE. NO ADDITIONAL REQUESTS OR COMPLAINTS. CALL LIGHT WITHIN REACH. BED RAILS UP.
--- NOTE | 2022-09-20 18:13 | NUR ---
THIS RN TO ROOM TO CHECK ON PT. PT REPROTS NG TUBE IS MAKING HER GAG, ICE CHIPS PROVIDED. OLD CEPACOL [place] AT BEDSIDE, PT ENCORUAGED TO USE THIS. PT REPORTS THESE HELP WITH THE FEEING OF GAGING. NG TUBE CANISTER HAS NOW COLLECTED 650ML GREEN FLUID, RECORDED. LOW INTERMITTAN SUCTION REMAINS IN PLACE. LACIE DRAIN EMIED OF 20ML SEROUSANGUINOUS FLUID. PT DENIES ADDITIONAL REQUESTS OR COMPLAINTS. CALL LIGHT WIHTIN REACH. BED RAILS UP.
--- NOTE | 2022-09-20 18:42 | NUR ---
PT CALL LIGHT ON. PT REQUESTS ASSISTANCE UP TO RESTROOM. NG TUBE CLAMPTED. PT UP TO RESTROOM. PORTER CARE PER PT. PT BACK TO BED AND NG TUBE RETURNED TO LOW INTERMITTAN SUCTION. PT REPORTS PAIN AT IV SITE. IV ASSESSED, PAIN WITH FLUSHING, IV DC'D PER PROTOCOL. NEW IV STARTED PER PROTOCOL TO LEFT HAND. PT TOELRATED WELL. BRISK BLOOD RETURN NOTED. IV FLUIDS RESUMED. PT REPORTS NASUEA, SEE MAR FOR MEDICATION GIVEN. PT REPORTS 5/10 ABDOMINAL PAIN, PT DENIES NEED FOR MEDICAITON AT THIS TIME. PT REPORTS 7/10 SORE THROAT, SEE MAR FOR MEDICATION GIVEN. NO ADDITIONAL REQUESTS OR COMPLAINTS. CALL LIGHT TITO REACH. BED RAILS UP.
--- NOTE | 2022-09-20 19:27 | NUR ---
PT RESTING IN BED, ALERT AND WITHOUT REQUESTS, BEDSIDE REPORT RECEIVED PER PARADISE RN, NG TO INTERMITTENT SX, APPEARS TO BE DRAINING WELL.
--- NOTE | 2022-09-20 20:17 | NUR ---
CALL LIGHT ANSWERED. SBA TO RESTROOM FOR 550 ML VOID AND BACK TO BED. NEW GOWN APPLIED. COOL CLOTH PROVIDED. pt DENIES NAUSEA. IVF INFUSING ORDERED WNL. NGT FLUSHED WITH 60 MLS, RETURN NOTED, GREEN DRAINGE FLOWING TO SUCTION CANNISTER. CALL LIGHT IN REACH. pt DENIES NEEDS.
--- NOTE | 2022-09-20 21:54 | NUR ---
CALL LIGHT ANSWERED. SBA TO BATHROOM. PATIENT IS BACK IN BED. NGT IS BACK ON. NOTICED PATIENT GAGGED HOLDING THE EMESIS BAG AND STATE "CAN YOU GET MY NURSE PLEASE".PRIMARY RN NOTIFIED.
--- NOTE | 2022-09-20 22:11 | NUR ---
RN TO ROOM TO MEDICATE PT PER HER REQUEST FOR NAUSEA AND PAIN, PT MEDICATED WITH TORADOL 30MG IV PER ORDER AND ZOFRAN 8 MG IV PER ORDER
--- NOTE | 2022-09-20 22:26 | NUR ---
PT ALERT, RESTING IN BED, VS, I/O AND ASSESSMENT DONE, PT UP TO BR TO VOID, CUSTOMS AGENT STAND BY ASSIST, PT'S GAIT STEADY, WITHOUT DIZZINESS, PT PLANS TO AMBULATED IN [place] SOON.
--- NOTE | 2022-09-20 22:32 | NUR ---
pt UP AMBULATING IN HALLWAY WITH ZEB MERCADO.
--- NOTE | 2022-09-20 22:45 | NUR ---
PATIENT GOT UP TO USE THE RESTROOM THEN PATIENT WALKED AROUND THE HALLWAY X1. PATIENT IS BACK IN BED. NGT IS BACK ON. CHANGED GREEN BLANKET AND SHEET. WARM BLANKET PROVIDED.
--- NOTE | 2022-09-21 00:49 | NUR ---
CALL LIGHT ANSWERED. SBA TO RESTROOM FOR VOID AND BACK TO BED. pt STATES "IT'S OKAY NOW" REGARDING PAIN. RATES PAIN 4/10 IN ABDOMEN. DENIES NEEDS AT THIS TIME. NGT TO INT WALL SUCTION. CALL LIGHT IN REACH.
--- NOTE | 2022-09-21 01:35 | NUR ---
PT APPEARS TO SLEEP, RESP EVEN AND REG.
--- NOTE | 2022-09-21 02:55 | NUR ---
PT UP AMBULATING IN THE [place], TOLERATED WELL, REPORTS PASSING GAS WITH AMBULATION.
--- NOTE | 2022-09-21 03:07 | NUR ---
PATIENT CALLED TO USE THE BATHROOM. SBA. PATIENT WALKED AROUND THE NURSE'S STATION X2. PATIENT IS BACK IN BED. NGT IS BACK ON. ICE WATER REFRESHED. PRIMARY RN WAS WITH PATIENT.
--- NOTE | 2022-09-21 03:07 | NUR ---
PT BACK TO BED, REQUESTING NAUSEA MEDICATION, MEDICATED WITH COMPAZINE 5 MG PER ORDER, PT REQUESTING PAIN MEDICATION, PT OFFERED TYLENOL IV AND AGREES.
--- NOTE | 2022-09-21 03:17 | NUR ---
PT RESTING IN BED, REQUESTING TYLENOL FOR PAIN, MEDICATED WITH IV TYLENOL PER ORDER, IV PATENT AND INFUSING WELL.
--- NOTE | 2022-09-21 03:47 | NUR ---
PT CALLED, IV ALARMING, OFIRMEV COMPLETE. REQUESTED BATHROOM, BACK TO BED, NG MIWS. ALL PERSONAL SUPPLIES WITHIN REACH. FRESH COLD WASHCLOTH GIVEN.
--- NOTE | 2022-09-21 05:44 | NUR ---
CALL LIGHT ANSWERED. SBA TO RESTROOM FOR VOID AND BACK TO BED. pt COMPLAINS OF PAIN FROM COUGHING. 01/25. PRIMARY RN NOTIFIED. LACIE DRAIN EMPTIED, 10 MLS SS FLUID. NGT FLUSHED WITH 60 MLS TAP WATER AND 50 MLS AIR. BRISK RETURN AFTER AIR BOLUS OF GREEN FLUID IN SUCTION CANNISTER, SUBSTANCE CONTINUES TO FILL INTO CANNISTER. VSS. pt REQUESTING NAUSEA MEDICATION WELL. CALL LIGHT IN REACH.
--- NOTE | 2022-09-21 07:12 | NUR ---
REPORT RECEIVED FROM REAGAN RIVERA. PT RESTING IN BED WITH EYES CLOSED, RESPIRTATIONS EVEN AND UNLABORED. HEAD OF BED AT 25 DEGREES. NG TUBE TO LOW INTERMITTANT SUCTION WITH FLUCUATION OF FLUID NOTED IN SUCTION TUBING. NO ADDITIONAL NEEDS AT THIS TIME. BED RAILS UP. CALL LIGHT WITHIN REACH. PT ALLOWED TO REST.
--- NOTE | 2022-09-21 08:41 | NUR ---
MORNING ASSESSMENT AND MEDICAITON DUE. PT HAS BEEN UP TO AMBULATE IN THE [place] X3 LAPS THIS MORNING AND HAS BEEN UP TO CHAIR. PT REPORTS 3/10 PAIN IN ABDOMEN AND MILD NASUEA THAT IS "PROBABLY FROM THIS TUBE." (NG TUBE). PT DENIES NEED FOR PAIN OR NAUSEA MEDICATION. PT REPORTS SHE IS PASSING GAS WHILE UP AND WALKING. DR. FIGUEROA TO BEDSIDE AND STATES NG TUBE CAN BE REMOVED NG TUBE REMOVED BY DR FIGUEROA. PT REPORTS "OH NOW I FEEL MUCH BETTER." 600ML GREEN FLUID REMOVED FROM NG CANISTER. PT ENCORUAGED TO TAKE PO INTAKE SLOWLY AND TO CONTINUE TO AMBULATE. MIDLINE INCISION WNL WITH ONLY SCANT OLD SHADOWING NOTED. NO NEW DRAINAGE NOTED. LACIE DRAIN IN PLACE WIHT SMALL AMOUNT OF SEROUS ANGUINOUS FLUID REMAINING IN LACIE BULB. BOWEL TONES HYPOACTIVE. ABDOMEN SOFT BUT TENDER IN PLACES. PT UP TO RESTROOM INDEPENDANTLY, STEADY ON FEET, NO ASSISTANCE NEEDED. NO ADDITIONAL REQUESTS OR COMPLAINTS. CALL LIGHT WITHIN REACH. BED RAILS UP.
--- NOTE | 2022-09-21 10:25 | NUR ---
THIS RN TO ROOM TO CHECK ON PT. PT UP TO AMBULATE ANOTHER 3LAPS IN [place]. PT REPORTS 3/10 PAIN IN ABDOMEN THAT IS WELL CONTROLLED. PT DENIES NEED FOR ADDITIONAL PAIN MEDICATION AT THIS TIME. PT DENIES NAUSEA. PT REQUESTS 7-UP, PROVIDED. PT ENCORUAED TO GO SLOW WITH PO INTAKE AND VERBALIZES UNDERSTANDING. PT DENIES ADDITONAL REQUESTS OR COMPLAINTS. CALL LIGHT WITHIN REACH. BED RAILS UP.
--- NOTE | 2022-09-21 11:12 | NUR ---
THIS RN TO ROOM TO CHECK ON PT. PT RESTING IN BED AFTER ADDITIONAL AMBULATION. PT REPROTS 5/10 ABDOMINAL PAIN AND REQUESTS MEDICATION, SEE MAR FOR MEDICATION GIVEN. PT DENIES NAUSEA. NO ADDITIONAL REQUESTS OR COMPLAINTS. CALL LIGHT WITHIN REACH. BED RAILS UP.
--- NOTE | 2022-09-21 12:15 | NUR ---
THIS RN TO ROOM TO CHECK ON PT. PT UP TO AMBULATE IN [place] X 4 LAPS. PT TAKING SIPS OF CLEAR LIQUID TRAY AND CONTINUES TO REPORTS NAUSEA IS WELL CONTROLLED. PT REPORTS 3/10 PAIN AND STATES THE TYLENOL "REALLY HELPED." PT DENIES ADDITIONAL REQUESTS OR COMPLAINTS. CALL LIGHT WITHIN REACH.
--- NOTE | 2022-09-21 13:10 | NUR ---
THIS RN TO ROOM TO CHECK ON PT. PT SITTING ON EDGE OF BED. REPORTS SHE WAS UP TO AMBULATE IN [place] AND IS NOW VISITING WITH HER FRIEND. PT REPOTS 3/10 PAIN THAT CONTINUES TO BE WELL CONTROLLED. PT TIFFANY LUNA. NO ADDITIONAL REQUESTS OR COMPLAINTS. CALL LIGHT WITHIN REACH. BED RAILS UP.
--- NOTE | 2022-09-21 13:19 | NUR ---
PT ALERT, ORIENTED AND JUST BACK FROM AMBULATING IN [place]. PT FEELING MUCH BETTER TODAY. KNOWS SHE HAD SURGERY, BUT WAS UNSURE ALL THAT WAS DONE. HAD GOOD, POSITIVE TIME CONNECTING WITH PT. PT FEELS WELL CARED FOR, REQUESTED PRAYER. GAVE G.POST AND WILL FOLLOW
--- NOTE | 2022-09-21 14:41 | NUR ---
AFTERNOON ASSESSMENT DUE. PT UP TO AMBULATE IN [place] AGAIN. 20 LAPS SO FAR THIS SHIFT. PT DENIES NAUSEA AND REPORTS FEELINGS OF HUNGER, PT REPORTS HER STOMACH HAS BEEN RUMBLING AND SHE WOULD BE INTERESED IN TRYING SOME FULL LIQUIDS IF POSSIBLE. WILL CONSULT MD. PT REPORTS 5/10 PAIN IN ABDOMEN WITH ACTIVITY, SEE MAR FOR MEDICATION GIVEN. ABDOMEN SOFT AND TENDER ONLY AT SURGICAL SITES. BOWEL TONES HYPOACTIVE BUT PT REPORTS HEARING AND FEELING HER STOMACH/BOWEL MOVE. PT REPORTS FEELING "PUFFY" AND REPORTS "TIGHT" HANDS WITH OPENING AND CLOSING. DRESSING TO MIDLINE INCISION UNCHNAGED. ALCIE DRAIN SHOWS 10ML SEROUS ANGUINOUS FLUID IN BULB, SITE WNL. PT CHEERFUL, TALKING AND TELLING STORIES. PT REPORTS FEELING "MUCH BETTER THAN WHEN I CAME IN." NO ADDITIONAL REQUESTS OR COMPLAINTS. CALL LIGHT WITHIN REACH. BED RAILS UP.
--- NOTE | 2022-09-21 15:05 | NUR ---
PATIENT DOING WELL, AMBULATING IN THE [place]. PER MD NOTE PATIENT TO HOPEFULLY ADVANCE DIET TODAY. NO CHAGE IN DISCHARGE PLAN AT THIS TIME.
--- NOTE | 2022-09-21 15:39 | NUR ---
THIS RN TO ROOM TO CHECK ON PT. PT RESTING IN BED. PT REPORTS 3/10 PAIN WITH ACITVITY. PT DENIES NAUSEA. PT UP TO RESTROOM INDEPENDANTLY. PORTER CARE PER PT. PT VISITING WITH HER MOTHER IN [place]. NO ADDITIONAL REQUESTS OR COMPLAINTS. CALL LIGHT WITHIN REACH. BED RAILS UP.
--- NOTE | 2022-09-21 16:33 | NUR ---
CALL RECEIVED FROM DR. FIGUEROA, ORDERS GIVEN TO DC'D PTS IV FLUIDS AND ADVANCE PT TO FULL LIQUID DIET. ORDERS ENTERED, REPEAT BACK PERFORMED. PT UPDATED.
--- NOTE | 2022-09-21 16:41 | NUR ---
POST OP DAY 3 AFTER MULTIPLE ABDOMINAL PROCEEDURES. PT INDEPENDANT IN [place] AND ROOM THIS SHIFT, UP TO AMBULATE X +20 LAPS IN [place]. PT ADVANED FROM CLEAR LIQUID DIET TO FULL LIQUID DIET THIS SHIFT AFTER NG TUBE WAS DC'D THIS SHIFT. PT TOELRATING WELL WITH MINIMAL NAUSEA. PT IS PASSING GAS, NO BM YET. MIDLINE INCISION SHOWS SMALL AMOUNT OF OLD DRAINAGE. NO NEW DRAINAGE NOTED THIS SHIFT. LACIE DRAIN IN PLACE WITH SMALL AMOUNT OF SEROUSANGUINOUS DRAINAGE NOTED THIS SHIFT, DRAIN REMAINS SECURE. MINIMAL PRN PAIN MEDICAITONS GIVEN, TYLENOL AND TORADOL ONLY. IV SALINE LOCKED PT IS TOLERATEING PO INTAKE. PT HAS STARTED PER CYCLE. PT VOIDING QUANTITY SUFICIENT. PT USES CALL LIGHT AND MAKES NEEDS KNOWN.
--- NOTE | 2022-09-21 18:35 | NUR ---
PATIENT CALLED WITH CALL LIGHT TO NURSE STATION. PT JUST HAD TAKEN A SHOWER AND HER DRESSING IS WET. PER PARADISE KIRK SHE HAD ALREADY TALKED TO AND WAS ADVISED TO REMOVE THE DRESSING AND DRY THE AREA. STERI STRIPS APPLIED TO REINFORCE THE UMIBILICAL AREA.
--- NOTE | 2022-09-21 18:40 | NUR ---
REAGAN SCOTT CAME TO RETRIEVE THIS RN PTS DRESSING BECAME WET IN THE SHOWER. DR. FIGUEROA CALLED. ORDERS GIVEN TO REMOVE MID LINE DRESSING AND LEAVE OPEN TO AIR. DRESSING REMOVED AND UMBILICAL AREA REINFORCED BY STERI STRIPS BY REAGAN SCOTT. THIS RN NOW TO ROOM TO ASSESS WOUND. STERI STRIPS INTACT. EDGES WELL APROXIMATED, NO DRAINAGE SEEN. PT UPDATED ON PLAN OF CARE. PT DENIES BOTH PAIN AND NAUSEA. PT REPORTS HER FULL LIQUID DINNER "WENT REALLY WELL." PT SMILING AND TALKING WITH FRIENDS/FAMILY ON THE PHONE. NO ADDITIONAL REQUESTS OR COMPLAINTS. CALL LIGHT WITHIN REACH. BED RAILS UP.
--- NOTE | 2022-09-21 18:58 | NUR ---
TODAY THE PATIENT DID TWENTY-ONE LAPS AROUND MED SURG.
--- NOTE | 2022-09-21 19:05 | NUR ---
SHIFT REPORT RECEIVED FROM PARADISE RN, PT ALERT AND TALKING ON THE PHONE, PT WITHOUT COMPLAINTS AT THIS TIME, TWO RN CHECK OF ABDOMINAL INCISION DONE, STERI STRIPS INTACT, NO NOTED DRAINAGE, PT CHEERFUL WITH PROGRESS TODAY.
--- NOTE | 2022-09-21 19:50 | NUR ---
PT REQUESTING PAIN MED, PT DESIRES TO ALTERNATE TYLENOL AND TORADOL ONLY AT THIS TIME, NOTED IV TYLENOL NO LONGER ON THE EMAR, TELEPHONE CALL TO DR FIGUEROA, ORDERS RECEIVED FOR TYLENOL 1000MG PO Q 6 HOURS PRN.
--- NOTE | 2022-09-21 19:50 | NUR ---
PT AWAKE, REQUESTING TYLENOL FOR PAIN, NOTED IV TYLENOL D'DIONY, TC TO DR FIGUEROA, ORDER RECEIVED FOR PO TYLENOL 1000MG Q 6 HOURS.
--- NOTE | 2022-09-21 20:17 | NUR ---
PT MEDICATED WITH 1000MG TYLENOL FOR INCISIONAL PAIN, VS DONE AND NOTED ELEVATED BP, PLAN TO RECHECK AFTER PAIN MED AND REST, PT RECENTLY AMBULATED IN [place], ASSESSMENT COMPLETED, I/O DONE, PT PLEASED WITH HER PROGRESS TODAY. LACIE EMPTIED FOR 5 ML SERO SANG FLUID.
--- NOTE | 2022-09-21 22:11 | NUR ---
CALL LIGHT ANSWERED. pt COMPLAINS OF NAUSEA, NO EMESIS, NO GAGGING, DRY HEAVING NOTED. pt STATES "I THINK I JUST FEEL A LITTLE QUEASY FROM THE PILLS AND NOT BEING USED TO IT ON MY STOMACH". pt REPORTS FLATUS. PRN ZOFRAN 4 MG ADMINISTERED IV, SL WNL. ICE WATER REFILLED. pt TAKING SIPS. CALL LIGHT IN REACH.
--- NOTE | 2022-09-21 22:45 | NUR ---
PT RESTING IN BED, WITHOUT REQUEST, BP RECHECKED AND NOW IS 157/89 HR 89, PLAN TO MONITOR.
--- NOTE | 2022-09-22 00:31 | NUR ---
PT AWAKE, AMB IN [place], BACK TO ROOM REQUESTING TORADOL FOR PAIN AND NAUSEA MED FOR MID NAUSEA WITHOUT EMESIS, MED WITH TORODOL AND COMPAZINE PER ORDER. PT RECENTLY VOIDED 1000ML LIGHT YELLOW URINE.
--- NOTE | 2022-09-22 01:45 | NUR ---
PT ASLEEP, RESP EVEN AND REG, WITHOUT DISTRESS
--- NOTE | 2022-09-22 03:45 | NUR ---
PT ASLEEP AT THIS TIME, RESP EVEN AND REG.
--- NOTE | 2022-09-22 04:18 | NUR ---
CALL LIGHT ANSWERED. pt REPORTS HAVING A BM, LIQUID, GREEN IN COLOR PER pt. pt FLUSHED TOILET, VERBALIZES UNDERSTANDING TO LEAVE IN TOILET FOR NURSING TO VIEW AND DOCUMENT. NO ADDITIONAL REQUESTS.
--- NOTE | 2022-09-22 04:30 | NUR ---
PT AWAKE AND ALERT, UP AMB IN ROOM, HAD ANOTHER LIQUID LIGHT BROWN BM (FIRST ONE SHE FLUSHED), PT VOIDED ALSO, PT DENIES NEED FOR PAIN MED, ASSESSMENT COMPLETED, PT ATTEMPTING TO REST, PT HOPEFUL TO GO HOME TODAY.
--- NOTE | 2022-09-22 07:16 | NUR ---
REPORT RECEIVED FROM REAGAN RIVERA. PT SITITNG UP IN BED, PT DENIES PAIN AND NAUSEA. PT DENIES ANY REQUESTS OR COMPLAINTS AT THIS TIME. CALL LIGHT WITHIN REACH. BED RAILS UP.
--- NOTE | 2022-09-22 09:39 | NUR ---
MORNING ASSESSMENT AND MEDICAITON DUE. PT UP TO AMBULATE IN [place] X5 LAPS. PT REPORTS 3/10 PAIN IN ABDOMEN WITH ACTIVITY AND DENIES NEED FOR PAIN MEDICATION. PT DENIES NAUSEA. PT REPORTS SHE WAS ABLE TO EAT ALL HER BREAKFAST WITH OUT NAUSEA. PT REPORTS SHE CONTINUES TO PASS GAS. 2 BOWEL MOVEMENTS NOTED LAST SHIFT, NONE YET THIS SHIFT. ABDOMEN SOFT, TENDER IN PLACES. BOWEL TONES HYPOACTIVE. MIDLINE INCISION WNL WITH STERI STRIS INTACT AND EDGES WELL APROXIMATED. LACIE DRAIN WNL WITH SCANT AMOUNT OF SEROUSANGUINOUS DRAINAGE NOTED IN LACIE BULP. PT DENIES FLANK PAIN. MEDICATION GIVEN. I.S. USE DEMONSTRATED WITH PT REACHIGN 2250ML X5. PT DENIES ADDITIONAL REQUESTS OR CMPLAINTS. PT STATES SHE WOULD LIKE TO GO HOME SOON. WILL CONSULT MD REGARDING ADVANCING DIET. NO ADDITONAL REQEUSTS OR COMPLAINTS. CALL LIGHT WIHTIN REACH. BED RAILS UP.
--- NOTE | 2022-09-22 10:33 | NUR ---
THIS RN TO ROOM TO CHECK ON PT. PT UP TO AMBULATE IN [place] AGAIN X [address] FIGUEROA CALLED AND UPDATED ON PT STATUS. ORDERS GIVEN TO ADVANCE DIET TO REGULAR. NEW ORDERS ENTERED. LUNCH ORDER PER PT PREFERENCE PLACED WITH DIETARY. PT DENIES NAUSEA AND REPORTS PAIN REMAINS WELL CONTROLLED. NO ADDITIONAL REQUESTS OR COMPLAINTS AT THIS TIME. CALL LIGHT WITHIN REACH.
--- NOTE | 2022-09-22 11:00 | NUR ---
Spoke with Radha. She is hoping to go home today or tomorrow. Walking frequently in the halls. Gave her coloring books, color pencils, and a dot to dot book. She denies needs.
--- NOTE | 2022-09-22 11:26 | NUR ---
PT CALL LIGHT ON. PT REQUESTS PAIN MEDICATION FOR 6/10 PAIN IN ABDOMEN. PT RPEORTS SHE HAS AMBULATED X 8 LAPS SO FAR THIS MORNING. SEE MAR FOR MEDICATION GIVEN. PT DENIES NAUSEA. PT UPDATED ON PLAN OF CARE AND VERBLAIZES UNDERSTANDING. NO ADDITONAL REQUESTS OR COMPLAINTS. CALL LIGHT WITHIN REACH. BED RAILS UP.
--- NOTE | 2022-09-22 12:30 | NUR ---
THIS RN TO ROOM TO CHECK ON PT. PT EATING SANDWICH AND MASHEDPOTATOES FOR LUNCH. PT DENIES NAUSEA AND STATES PAIN HAS IMPROVED NOW 07/28. PT DENIES NEED FOR ADDITIONAL PAIN MEDICAITONS. NO ADDITIONAL REQUESTS OR COMPLAINTS. CALL LIGHT WITHIN REACH. BED RAILS UP.
--- NOTE | 2022-09-22 13:20 | NUR ---
PT FINISHED WITH LUNCH. TOLERATED REGULAR DIET WITHOUT NAUSEA OR INCREASED PAIN. PT REPORTS 2/10 ABDOMINAL PAIN AT THIS TIME THAT IS WELL CONTROLLED. DR. FIGUEROA UPDATED ON PT STATUS, STATES TO HAVE SUTURE REMOVAL KIT AND BAINDAID AT BEDSIDE FOR POSSIBLE LACIE DRAIN REMOVAL, SUPPLIES AT BEDSIDE. PT UPDATED ON PLAN OF CARE. PT WATCHING TV AND TALKING WITH FAMILY ON THE PHONE. NO ADDITIONAL REQUESTS OR COMPLAINTS. CALL LIGHT WITHIN REACH.
--- NOTE | 2022-09-22 13:46 | NUR ---
PT ALERT, ORIENTED SITTING UP IN BED WATCHING TV. PT FEELS MUCH BETTER, HAS BM'S, PASSING GAS AND LONGING TO DC TO HOME. GAVE ENCOURAGEMENT, HAD PRAYER WITH PT. PT GOT EMOTIONAL, THANKED ME FOR VISIT. WILL FOLLOW
--- NOTE | 2022-09-22 14:50 | NUR ---
AFTERNOON ASSESSMENT DUE. PT UP AND WALKING IN [place] AND AROUND ROOM. PT DENIES NAUSEA AND REPROTS 3/10 ABDOMINAL PAIN THAT IS WELL CONTROLLED. PT REPORTS SHE CONTINUES TO PASS GAS. PT UP TO RESTROOM AND HAS ANOTHER SOFT BROWN BOWEL MOVEMENT. PORTER CARE PER PT. BOWEL TONES ACTIVE. ABDOMEN SOFT AND MINIMALLY TENDER. MIDLINE INCISION REMAINS WNL WITH EDGES WELL APROXIMATED AND STERI STRIPS INTACT. LACIE DRAIN WNL WITH MINIMAL SEROUS ANGUINOUS DRAINAGE NOTED IN BULB. <10ML AT THIS TIME. PT REQUESTS TO SHOWER. SHOWER SET UP. IV COVERED. PT UP TO SHOWER INDEPENDANTLY, NO ASSISTANCE NEEDED. NO ADDITIONAL REQUESTS OR COMPLAINTS. CALL LIGHT WITHIN REACH.
--- NOTE | 2022-09-22 16:20 | NUR ---
THIS RN TO ROOM TO CHECK ON PT. PT REPORTS 3/10 ABDOMINAL PAIN THAT IS WELL CONTROLLED. PT DENIES NAUSEA. PT TALKING WITH FAMILY ON THE PHONE AND COLORING. [employer]OM[employer]BILE SALESMAN ASSISTED PT TO BRAID HAIR. PT REPORTS HER SHOWER FELT "REALLY GOOD." PT CONTINUES TO STATE SHE IS READY FOR DISCHARGE. AWAITING MD ORDER. NO ADDITIONAL REQUESTS OR COMPLAINTS. CALL LIGHT WITHIN REACH. BED RAILS UP.
--- NOTE | 2022-09-22 17:28 | NUR ---
THIS RN TO ROOM TO WITH DR. FIGUEROA FOR ROUNDS. DISCHAGE ORDERS GIVEN. LACIE DRAIN REMOVED BY DR. FIGUEROA AND BANDAID APPLIED. PT VERBALIZES UNDERSTANDING OF DISCHARGE INSTRUCTIONS FROM MD. IV DC'D PER PROTOCOL. GAUZE AND COBSAM APPLIED. PT UP TO GET DRESSED, NO ASSISTANCE NEEDED. NO ADDITIONAL REQUESTS OR COMPLAINTS. CALL LIGHT [facility].
[2022-09-22] MEDS ORDERED: MOTRIN IB200 MG PO (17:31)
[2022-09-22] MEDS ORDERED: ACETAMINOPHEN500 MG PO (17:31)
--- NOTE | 2022-09-22 18:05 | NUR ---
PT READY FOR DISCHRAGE. VITAL SIGNS STABLE. PT REPORTS PAIN AND NAUSEA ARE WELL CONTROLLED. DISCHARGE INSTRUCTIONS REVIEWED WITH PT, PTS MOTHER IN LAW AND PTS DAUGHTER. PT VERBALIZES UNDERSTANDING OF INSTRUCTIONS, MEDICAITONS AND FOLLOW UP. NOTED THAT PTS FOLLOW UP WIHT DR FIGUEROA IS NOT FOR [address] FIGUEROA CONSULTED AND STATES HE WILL SPEAK TO HIS OFFICE STAFF ABOUT MOVING UP APT. PT INSTRUCTED TO CALL DR. FIGUEROA'S OFFICE TOMORROW. PT VERBALIZES UNDERSTANDING. PT TRANSFERS SELF TO WHEELCHAIR AND IS WHEELED FROM MED/SURG. NO ADDITIONAL REQUESTS OR CONCERNS.
--- NOTE | 2022-09-23 13:20 | HP ---
[facility] [address], [place] [address] Signed ADMISSION DATE: 09/17/2022 REASON FOR ADMISSION: Bowel obstruction, complex pelvic masses. HISTORY OF PRESENT ILLNESS: This 42-year-old white woman presented to the emergency room today and evaluated by Dr. Mich Grant with persistent vomiting and crampy abdominal pain. She had been seen in the ER within the past 24 hours with similar symptoms thought likely related to gastroenteritis. She has been unable to stop vomiting since the discharge from the ER and did see some hematemesis with her most recent episode of vomiting. She has had no fever, though she did report chills. She had crampy abdominal pain in the upper abdomen and Zofran that had been given was of little benefit. Per evaluation by Dr. Grant showed her to have no significant abdominal distention. The abdomen was soft throughout without sign of peritonitis. She was tachycardic with a heart rate of 115 as confirmed on EKG, but no evidence of worrisome arrhythmia. A plain x-ray was obtained of the chest, which was normal. She did undergo CT scan of the abdomen confirming a small bowel obstruction with a transition point in the central pelvis adjacent to the uterus and right adnexa. There was right hydrosalpinx suggested and a multiloculated cystic mass in the superior margin of the uterus and left ovary measuring 7.3 cm. A fat containing umbilical hernia was noted without incarceration of hollow viscus. Her evaluation showed lab studies which included a white count of 10.3, hematocrit of 45.6. Normal electrolytes. Creatinine 1.15, alkaline phosphatase 74. Liver enzymes were otherwise normal. Urinalysis was normal. Her tox screen was negative except for marijuana. The patient has had abdominal surgery in the past including cholecystectomy by laparoscopic approach. She had x1 and has had right ankle operation in the past. ALLERGIES: She has no known drug allergies. MEDICATIONS: Her only medications at the time of admission included Zofran. SOCIAL HISTORY: [place] has three [place] Electronically Signed By: ALFA FIGUEROA MD 09/23/22 1320 PATIENT NAME: RASHID CRUZ HISTORY AND PHYSICAL DATE OF : 84 REPORT #: [id number] PHYSICIAN: ALFA FIGUEROA MD PCP: NO PRIMARY CARE PHYSICIAN REPORT IS CONFIDENTIAL AND NOT TO BE RELEASED WITHOUT AUTHORIZATION [facility] [address], [place] [address] Signed REVIEW OF SYSTEMS: She denies any back pain particularly. She has had no vaginal bleeding. She does have menstrual periods. She has no dysphagia or known hematuria. PHYSICAL EXAMINATION: GENERAL: A pleasant white woman who looks to be in mild discomfort related to nasogastric tube placement. Nasogastric tube shows bilious fluid. NECK: Trachea is midline. CHEST: Shows normal respiratory excursion. Pulse is regular. ABDOMEN: Nondistended, flat, and easily palpated. There is no palpable mass and no tenderness at this time. EXTREMITIES: Show no clubbing, cyanosis, or edema. LABORATORY DATA: Lab studies were as previously described. I have reviewed her CT scan in detail. A complex multicystic pelvic mass is noted and a small bowel obstruction centered into the low pelvis, possibly related to the gynecologic findings. A CA-125 was requested and is still pending. Lab studies as previously described. Troponin highly sensitive at 21.7, which was normal. Serologies negative for COVID disease or RSV or influenza. ASSESSMENT: The patient has small-bowel obstruction much of the small bowel and obstruction appears to be in the ileum and may or may not be related to the pelvic findings. A nasogastric tube has appropriately been placed and is well positioned and is decompressing the stomach. She is admitted at this time to undergo nasogastric tube decompression, fluid resuscitation, pain control and so forth. There is a high probability she will require laparotomy to remedy this problem of bowel obstruction. Concordant to this is the concept of the complex cystic ovarian lesions, left greater than right in size. A CA-125 is pending and likely will be available tomorrow. I discussed with her the possibility of pelvic malignancy, though it is uncertain at this point. It may be that her bowel obstruction is completely unrelated to the pelvic findings. We will provide additional support as necessary and reconsider for possible operative therapy tomorrow depending on whether or not she clears her obstructive problem with the aforementioned approaches. Electronically Signed By: ALFA FIGUEROA MD 09/23/22 1320 PATIENT NAME: RASHID CRUZ HISTORY AND PHYSICAL DATE OF : 84 REPORT #: [id number] PHYSICIAN: ALFA FIGUEROA MD PCP: NO PRIMARY CARE PHYSICIAN REPORT IS CONFIDENTIAL AND NOT TO BE RELEASED WITHOUT AUTHORIZATION [facility] [address] [place] [id number] Signed Alfa Figueroa MD JM/MODL /[id number] cc: Dr. Mich Grant Copies: ~ Electronically Signed By: ALFA FIGUEROA MD 09/23/22 1320 PATIENT NAME: RASHID CRUZ HISTORY AND PHYSICAL DATE OF : [birth year] REPORT #: [id number] PHYSICIAN: ALFA FIGUEROA MD PCP: NO PRIMARY CARE PHYSICIAN REPORT IS CONFIDENTIAL AND NOT TO BE RELEASED WITHOUT AUTHORIZATION
--- NOTE | 2022-09-23 13:20 | OR ---
[facility] [address], [place] [address] Signed DATE OF OPERATION: 09/18/2022 SURGEON: Jose Figueroa MD PREOPERATIVE DIAGNOSES: 1. Complete distal small bowel obstruction. 2. Complex pelvic mass including bilateral hydrosalpinx. 3. Incarcerated incisional hernia in region of umbilicus. POSTOPERATIVE DIAGNOSES: 1. Complete small bowel obstruction related to dense inflammatory adhesions of the ileum in relation to complex pelvic mass. 2. Incarcerated incisional hernia with incarcerated omentum. 3. Bilateral hydrosalpinx with chronic inflammatory change and a reasonably normal uterus. 4. Dilated appendix. PROCEDURE: 1. Exploration of abdomen for reduction of incarcerated incisional hernia with partial omentectomy. 2. Lysis of adhesions (complex) with segmental small-bowel resection of the ileum with end-to-end ileoileostomy. 3. Repair of incisional hernia. 4. Excision of complex pelvic cystic mass with bilateral salpingo-oophorectomy. 5. Placement of pelvic drain. 6. Appendectomy. ANESTHESIA: General endotracheal, Carmen Lopes CRNA INDICATIONS: This 42-year-old white woman presented yesterday to the emergency room with high-grade distal small bowel obstruction. A CT scan was performed, which showed proximal dilation of bowel loops and distal decompression of the portion of ileum. Additionally noted was complex pelvic cystic mass with bilateral ovarian cystic changes and at least right hydrosalpinx. She had no evidence of ureteral obstruction. She was admitted and given fluid resuscitation and the nasogastric tube decompression. The CA-125 was found to be normal. Given her high-grade obstruction and without any progress despite nasogastric tube decompression, I have recommended laparotomy with remedy of the bowel obstruction and assessment and treatment of the complex adnexal cystic disease. The risks of Electronically Signed By: JOSE FIGUEROA MD 09/23/22 1320 PATIENT NAME: RASHID CRUZ OPERATIVE REPORT DATE OF : [birth year] REPORT #: [id number] PHYSICIAN: JOSE FIGUEROA MD PCP: NO PRIMARY CARE PHYSICIAN REPORT IS CONFIDENTIAL AND NOT TO BE RELEASED WITHOUT AUTHORIZATION [facility] [address], [place] [address] Signed bleeding, infection, ureteral injury, need for bowel resection and possibility of malignancy related to the pelvic cystic disease was reviewed with the patient and her [id number]. They understand and she wishes to proceed. Additionally, the patient has a non-reducible 4 cm hernia at the umbilicus, which on CT scan includes omentum. Remedy of this problem will be undertaken as well. FINDINGS: The incarcerated hernia at the umbilicus related to prior incision did have Prolene mesh associated with the defect. It was somewhat difficult to reduce the hernia though with midline fascial transection, it ultimately could be reduced. The incarcerated portion was somewhat ischemic and on that basis, a partial omentectomy was undertaken. Closure of the hernia defect was at conclusion of the procedure in continuity with the midline fascia. The small bowel was indeed very obstructed distally related to fibrotic dense adhesions to the complex pelvic cystic mass. Freeing of the small bowel from the mass allowed it to be withdrawn more fully and had angulation deformity, chronic scarring and dense fibrotic cicatrix to it. Ultimately, segmental resection was required with end-to-end anastomosis. Mobilization of the right colon was undertaken noting a retrocecal appendix, which although not acutely inflamed, did have dilation and resection was deemed advisable on that basis. The complex cystic mass was approximately 9 cm and was directly adherent to the mesentery of the rectosigmoid. It was excised completely. It generally had benign features. The mesenteric defect in the rectosigmoid did not cause ischemic changes to the rectum or sigmoid and the defect was closed. Additionally, the uterus itself was quite chronically inflamed in the surrounding areas and two small clear periuterine cystic lesions were excised. She had bilateral hydrosalpinx, likely related to infection from the past and bilateral salpingo-oophorectomy in continuity with the associated cystic changes was undertaken. The operation was prolonged, complicated, and difficult on the basis of density of fibrosis and extent of operation, it was accomplished safely. Blood loss was at least 400 mL. A drain was placed in the pelvis. DESCRIPTION OF PROCEDURE: The patient was brought to the operating room, given a general endotracheal anesthetic. Preoperative antibiotic Ancef and Flagyl had been given. Sequential compression device Electronically Signed By: JOSE FIGUEROA MD 09/23/22 1320 PATIENT NAME: RASHID CRUZ OPERATIVE REPORT DATE OF : 84 REPORT #: [id number] PHYSICIAN: JOSE FIGUEROA MD PCP: NO PRIMARY CARE PHYSICIAN REPORT IS CONFIDENTIAL AND NOT TO BE RELEASED WITHOUT AUTHORIZATION [facility] [address], [place] [address] Signed stockings were used and heparin subcutaneously administered. A Packer catheter was placed. A nasogastric tube was already in place. The abdomen was prepared with chlorhexidine solution and draped sterilely. A low midline incision was made extending the incision around the incarcerated umbilical hernia. Dissection was undertaken in this area more fully and found to have densely adherent omentum into the chronic hernia sac. The fascia was ultimately incised, but this surprising difficulty in reducing the portion of incarcerated omentum was noted. A Prolene suture was noted, which was removed. Once the fascia was fully incised and the omental herniation that withdrawn, the portion of omentum did appear ischemic. It was later resected and passed for pathology. The dilated proximal small bowel loops were manipulated out of the abdomen and examination of the pelvis undertaken. A dense inflammatory cicatrix was noted deep in the pelvis, which was the cause of the obstruction. The contorted bowel loops of ileum were densely adherent to a large pelvic mass. These were freed from the pelvic mass without rupturing of the cystic mass. 100 mL of pelvic fluid was sent for cytology on the possibility of malignancy related to the cystic mass. A Bookwalter retractor was attached to the table allowing for good exposure. Small bowel loops were packed superiorly. The cystic mass was densely adherent to the small bowel and with various maneuvers including electrocautery, blunt and sharp dissection, the segment of small bowel was freed from the pelvic mass freeing the small bowel entirely. It was elevated out of the way and had chronic scar tissue. No sign of carcinomatosis and angulation deformities, which would preclude reasonable remedy of the loop. The loop was set aside anticipating resection later. Examination of the pelvis showed a dense pelvic mass to be difficult to discern from the uterus proper. Considerable inflammatory changes were noted in the areas considered the adnexa. The complex pelvic mass likely emanated from the left ovary. It was dissected free as much as possible and found it to be completely adherent to the rectosigmoid mesentery. This was dissected free with as much care as possible so as to minimize mesenteric blood flow compromise to the rectosigmoid. Some drainage of the fluid was noted, which did improve the ease of the dissection. The cystic mass was ultimately excised completely and found to be likely the left adnexal origin. The left salpinx and presumably left ovary were excised in continuity with the cystic mass securing the fallopian tube adjacent to the uterus with 0 Vicryl suture ligature. Explantation of that portion of the mass was undertaken. Examination further showed a complex hydrosalpinx densely matted to surrounding tissue on the right side. This was dissected free with all due care, ultimately freeing the hydrosalpinx and presumably it was associated over a period. The infundibulopelvic ligament was secured with clamps and 0-silk ties Electronically Signed By: JOSE FIGUEROA MD 09/23/22 1320 PATIENT NAME: RASHID CRUZ OPERATIVE REPORT DATE OF : 84 REPORT #: [id number] PHYSICIAN: JOSE FIGUEROA MD PCP: NO PRIMARY CARE PHYSICIAN REPORT IS CONFIDENTIAL AND NOT TO BE RELEASED WITHOUT AUTHORIZATION [facility] [address], [place] [address] Signed isolating the tube and ovarian remnant with its cystic changes. The right salpinx was secured with tonsil clamps, divided, and doubly suture ligated adjacent to the uterus itself. Irrigation was undertaken. There was no known injury to the ureters or elsewhere, though the base of the pelvis was impressively densely scarred. Irrigation was undertaken more fully. Small clips had been used for hemostasis as necessary as well. The pelvis was then packed with laparotomy packs. Attention was turned towards the small bowel. As mentioned previously, the distal ileum had dense scarring including portions of scar that had been excised to free it from the pelvic mass. Segmental resection was deemed the most advisable course of action though the proximal bowel was somewhat dilated in the terminal ileum, completely decompressed. The cecum was freed from the pelvic sidewall as well as the right colon by incising the white line of Toldt and bluntly the colon. The appendix was encountered and rather elongated and somewhat dilated and although not acutely inflamed, deemed advisable for resection. The mesoappendix was secured with two clips and ultimately silk tie isolating the base of the appendix. The base of the appendix was crushed and milked distally and a 3-0 Vicryl tie used to secure the crush jovan. The appendix was amputated and the mucosal portions cauterized and the stump inverted with a 3-0 silk suture. Irrigation was undertaken more fully. By this point, the ileum was well mobilized from the lateral sidewall and positioned well for anastomosis and resection. An area of viable and normal ilium approximately 8 cm from the ileocecal valve was identified as was the more proximal segment of small bowel that was completely viable, though somewhat dilated from the obstructive process. Mesentery corresponding to the segment for resection was scored and mesenteric blood vessels secured with hemostats and vascular pedicles ligated with 0-silk ties. A YOANNA 60 mm device was used to transect the segment of bowel, which measured approximately 15 cm in length. An end-to-end ileal ileostomy was then undertaken in two-layer technique with interrupted 3-0 silk suture for the serosal layer and interrupted 3-0 Vicryl for the mucosal layer. Mesenteric defect was secured with interrupted 3-0 silk suture. Irrigation was undertaken more fully. Attention was then turned towards the pelvis once again. The mesenteric defect of the rectosigmoid was secured with interrupted 3-0 silk sutures to avoid transmesenteric herniation. Two segments of marginal omentum that were reduced from the incarcerated hernia were secured with clamps and 0-silk ties and portion of omentum resected and passed off for final pathology. Irrigation in the pelvis showed good hemostasis overall. However, Katelin powder was insufflated into the depths of the pelvis for added hemostatic benefit. Through a left lower quadrant stab incision, a 7 mm flat Aldo drain was placed into the depths of the pelvis, secured to the skin and later attached to bulb suction. The small bowel viscera were found to be completely viable as was the rectosigmoid and the bowel was replaced to a natural anatomic configuration into the pelvis. The omentum was replaced over the abdominal Electronically Signed By: JOSE FIGUEROA MD 09/23/22 1320 PATIENT NAME: RASHID CRUZ OPERATIVE REPORT DATE OF : 84 REPORT #: [id number] PHYSICIAN: JOSE FIGUEROA MD PCP: NO PRIMARY CARE PHYSICIAN REPORT IS CONFIDENTIAL AND NOT TO BE RELEASED WITHOUT AUTHORIZATION [facility] [address], [place] [address] Signed contents and plans made for closure. The hernia defect at the umbilicus was further dissected free and freeing the hernia sac completely. The fascia was reapproximated with running bidirectional #1 PDS suture. Subcutaneous tissue was copiously irrigated and the skin closed with a running subcuticular 3-0 Vicryl. Steri-Strips were applied as was an Acticoat dressing. The drain was applied to bulb suction. Blood loss was about 400 mL. Sponge, needle, and instrument counts were reported as correct x3. At conclusion of procedure, the marketing officer did perform bilateral TAP blocks for postoperative analgesic benefit. She was extubated and taken to the recovery room in good condition. Jose Figueroa MD JM/MODL /[id number] cc: Mich Grant Copies: ~ Electronically Signed By: JOSE FIGUEROA MD 09/23/22 1320 PATIENT NAME: RASHID CRUZ OPERATIVE REPORT DATE OF : 84 REPORT #: [id number] PHYSICIAN: JOSE FIGUEROA MD PCP: NO PRIMARY CARE PHYSICIAN REPORT IS CONFIDENTIAL AND NOT TO BE RELEASED WITHOUT AUTHORIZATION
--- NOTE | 2022-09-23 13:20 | DS ---
[facility] [address], [place] [address] Signed ADMISSION DATE: 09/17/2022 DISCHARGE DATE: 09/22/2022 REASON FOR ADMISSION: Small bowel obstruction. HISTORY OF PRESENT ILLNESS: This 42-year-old white woman presented to the emergency room and was evaluated by Dr. Grant with persistent vomiting and crampy abdominal pain. She had been seen in the emergency room within the preceding 24 hours with similar symptoms, thought likely to be related to gastroenteritis. She has been essentially unable to stop vomiting since her discharge from the ER and some mild hematemesis was noted. Her evaluation on 2nd ER visit showed her to have no significant abdominal distention and no sign of peritonitis, so she was tachycardia. Plain x-ray was obtained of the chest, which was normal. She did undergo a CT scan of the abdomen confirming a small bowel obstruction in the distal portion with transition in the central pelvis adjacent to the uterus and right adnexa. There was right hydrosalpinx as well as multiloculated cystic mass in the superior margin of the uterus and left ovary measuring at least 7.3 cm. An incarcerated umbilical hernia was noted with fat and without hollow viscus. She is admitted for further evaluation and care. Notably, the patient has had abdominal surgery in the past including cholecystectomy by laparoscopic approach as well as x1 and right ankle operation. PERTINENT PHYSICAL EXAMINATION: On admission showed a pleasant white woman who looks to be in mild discomfort related to the nasogastric tube placement. Considerable amount of bilious fluid was noted in the nasogastric tube. Trachea was midline. Chest was clear without wheeze or rhonchi. Heart was regular without murmur. Abdomen is nondistended, flat and easily palpated. There is no palpable mass. No tenderness particularly. CT scan was as noted showing a complex multicystic mass, hydrosalpinx and bowel obstruction with transition point at the dome of the uterus. A CA-125 was obtained which was found to be normal. Troponin 21.7 (normal). Negative serologies for COVID or RSV. HOSPITAL COURSE: She was admitted, admitted and given fluid resuscitation and maintained on nasogastric tube decompression. She quite clearly would be unlikely to have progressive improvement, non-operative approach was initiated. Given the high-grade obstruction and Electronically Signed By: JOSE FIGUEROA MD 09/23/22 1320 PATIENT NAME: RASHID CRUZ DISCHARGE SUMMARY DATE OF : 84 REPORT #: [id number] PHYSICIAN: JOSE FIGUEROA MD PCP: NO PRIMARY CARE PHYSICIAN REPORT IS CONFIDENTIAL AND NOT TO BE RELEASED WITHOUT AUTHORIZATION [facility] [address], [place] [address] Signed without progress despite nasogastric tube decompression, I recommended laparotomy. On September 18, 2022, she underwent exploration of the abdomen. Reduction of an incarcerated incisional hernia of omentum in the upper abdomen was undertaken and partial omentectomy was performed. She had complex lysis of adhesions of a segment of ileum densely adherent to the pelvic mass and ultimately segmental small bowel resection with end-to-end enteroenterostomy. Anastomosis is approximately 12 cm from the ileocecal valve junction itself. Additionally, she had excision of complex cystic mass and bilateral salpingo-oophorectomy for a hydrosalpinx. The uterus was left in situ. She had no evidence of carcinomatosis. A pelvic drain was placed. Appendectomy was also performed as was repair of the incisional hernia by primary fascial reapproximation. Postoperative course was relatively unremarkable. Nasogastric tube was allowed to remain in place to decompress the bowel. Within two days, she had some flatus and the tube was removed. She was begun on liquids the night of operation in limited amounts for comfort measures primarily. She had progressive improvement and by the day of discharge is ambulating well, tolerating a regular diet without problem, has had normal bowel movements and incisional pain is minimal. The drain that was placed in the pelvis was removed prior to discharge. The pathology report is pending at the time of discharge. DISCHARGE MEDICATIONS: Her discharge medications will include: 1. Tylenol 500 mg two tablets p.o. q.6 hours as needed for pain #60, refill 1. 2. Motrin 600 mg p.o. q.6 hours as needed for pain, dispense #30, refill 1. 3. She will continue Zofran as needed 8 mg q.6 hours as needed for nausea (though unlikely to need) as well as her usual multivitamin with calcium 1 tablet p.o. daily. FOLLOWUP PLAN: She is to return to see me in approximately four weeks. I am hopeful and optimistic that the pathology will show benign findings. Notably fluid cytology was sent at the outset of the operation on the unlikely consideration that it was an ovarian malignancy. She is encouraged to shower and walk on a daily basis and should lift no more than 20 pounds for the next 4 weeks. 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 She is to return to see me in approximately a month. An appointment is set up and referral for a new primary care provider as she has not been in contact with the primary care provider in the past. DISCHARGE DIAGNOSES: 1. Complete small-bowel obstruction of the terminal ileum related to dense adhesions Electronically Signed By: JOSE FIGUEROA MD 09/23/22 1320 PATIENT NAME: RASHID CRUZ DISCHARGE SUMMARY DATE OF : [birth year] REPORT #: [id number] PHYSICIAN: JOSE FIGUEROA MD PCP: NO PRIMARY CARE PHYSICIAN REPORT IS CONFIDENTIAL AND NOT TO BE RELEASED WITHOUT AUTHORIZATION [facility] [address], [place] [address] Signed from a complex multiloculated cystic pelvic mass. 2. Incarcerated umbilical hernia (omentum). 3. Secondary mild chronic inflammation of the appendix (excised). 4. 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 5. Segmental small bowel resection with end-to-end enteroenterostomy (ileum). 6. Distant history of laparoscopic cholecystectomy. MD HALIE Reis/MODL /[id number] Copies: ~ Electronically Signed By: JOSE FIGUEROA MD 09/23/22 1320 PATIENT NAME: RASHID CRUZ DISCHARGE SUMMARY DATE OF : [birth year] REPORT #: [id number] PHYSICIAN: JOSE FIGUEROA MD PCP: NO PRIMARY CARE PHYSICIAN REPORT IS CONFIDENTIAL AND NOT TO BE RELEASED WITHOUT AUTHORIZATION
--- NOTE | 2022-09-23 13:24 | PATH ---
[facility] [address], [place] [address] Signed SPECIMEN(S): A LT ADNEXA W/CYST SPECIMEN(S): B SUB-SEROSAL UTERINE CYST SPECIMEN(S): C RT ADNEXAL STRUCTURES W/CYST SPECIMEN(S): D SECTION OF ILEUM W/CICATRIX SPECIMEN(S): E APPENDIX, OTHER THAN INCIDENTAL SPECIMEN(S): F PORTION OF OMENTUM SPECIMEN SOURCE: A. LT ADNEXA W/CYST B. SUB-SEROSAL UTERINE CYST C. RT ADNEXAL STRUCTURES W/CYST D. SECTION OF ILEUM W/CICATRIX E. APPENDIX, OTHER THAN INCIDENTAL F. PORTION OF OMENTUM CLINICAL HISTORY: SBO, pelvic masses. FINAL PATHOLOGIC DIAGNOSIS: A. Left adnexa with cyst, left salpingo-oophorectomy: - Fimbriae and cross-sections of fallopian tubes with hemorrhage and endometriosis. - Ovarian parenchyma with a hemorrhagic cyst and endometriosis. B. Subserosal uterine cyst, excision: - Fragments of benign fibromembranous tissue with hemorrhage and some simple cyst lining. C. Right adnexal structures with cyst, left oophorectomy: - Some portions of benign fallopian tube with hydrosalpinx. - Ovarian parenchyma with endometriosis, hemorrhage and some serosal adhesions. D. Segment of ileum with cicatrix, segmental resection: - Benign small-intestinal mucosa with hemorrhage, endometriosis extending into muscularis mucosae, and serosal adhesions. - Margins appear viable with a focus of endometriosis and some serosal adhesions. E. Appendix, appendectomy: - Benign appendiceal mucosa with some fibrous obliteration and serosal adhesions. - No endometriosis identified. F. Portion of omentum, omentectomy: PATIENT NAME: RASHID CRUZ PATHOLOGY DATE OF : 84 REPORT #: [id number] PHYSICIAN: JASMIN PATHOLOGY PCP: NO PRIMARY CARE PHYSICIAN REPORT IS CONFIDENTIAL AND NOT TO BE RELEASED WITHOUT AUTHORIZATION [facility] [address], [place] [address] Signed - Fragments of benign fibroadipose tissue with endometriosis. DDF:[id number] MICROSCOPIC EXAMINATION: Histologic sections of all submitted blocks are examined by light microscopy. These findings, together with the gross examination, support the pathologic diagnosis. GROSS DESCRIPTION: A. The specimen, labeled and designated "Brad, left adnexa with cysts," is received in formalin and consists of a fragmented portion of brown-mart soft membranous adnexal tissue (7.0 x 6.0 x 3.2 cm). There is a possible nonfimbriated fallopian tube segment (3.5 cm in length by 0.8 cm in diameter) that is sectioned to reveal mart to red-brown soft cut surfaces. Remaining soft and ovarian tissue is sectioned to reveal mart to red-brown soft cut surfaces with a disrupted cyst (4.5 cm in greatest dimension) and multiple intact hemorrhagic material filled cysts (0.3-1.7 cm in greatest dimension. No papillary excrescences are grossly identified. [employer] sections are submitted. Cassette Summary: (A1) fallopian tube (A2-A5) ovary with cysts and soft tissue B. The specimen, labeled and designated "Anushkas, subserosal uterine cysts," is received in formalin and consists of portion of mart soft tissue (0.7 x 0.5 x 0.4 cm) with 2 attached and intact cysts (0.6 mart 0.8 cm in greatest dimension). The tissue is inked blue, bisected and submitted entirely in cassette B1. C. The specimen, labeled and designated "Brad, right adnexal structures with cyst," is received in formalin and consists of a portion of red-brown soft tissue (6.0 x 4.5 x 3.0 cm). The specimen is inked blue and serially sectioned to reveal an intact hemorrhagic material filled and multiloculated cyst (4.6 x 4.5 x 3.5 cm). The remaining cut surface shows mart-pink to red-brown soft tissue/ovary. A fallopian tube is not grossly identified. [employer] sections are submitted in cassette C1-C5. D. The specimen, labeled and designated "Brad, segment of ileum with cicatrix," is received in formalin and consists of the previously opened segment of small bowel (22 cm in length and ranging in circumference from 3.4 to 5.4 cm) the el are removed, one margin is inked PATIENT NAME: RASHID CRUZ PATHOLOGY DATE OF : 84 REPORT #: [id number] PHYSICIAN: JASMIN PATHOLOGY PCP: NO PRIMARY CARE PHYSICIAN REPORT IS CONFIDENTIAL AND NOT TO BE RELEASED WITHOUT AUTHORIZATION [facility] [address], [place] [address] Signed blue and the opposite margin is inked black. The serosa is mart-pink with mart-brown roughened fibrous area (inked green) that is located 2.7 cm from the blue inked margin and 9.2 cm from the black inked margin and measures 7.0 x 2.5 cm. The mucosa is mart-pink and slightly edematous with no masses or lesions grossly identified. [employer] sections are submitted. Cassette Summary: (D1) bowel margins, shaved (D2-D3) bowel with roughened fibrous area (D4) additional bowel wall E. The specimen, labeled and designated "Shorts, appendix," is received in formalin and consists of Specimen: Appendix with mesoappendix. Dimensions: 4.5 x 2.0 x 1.5 cm. Serosa: Mart-pink smooth. Defect: Not grossly identified. Inking: Staple line is inked black. Mucosa: Mart-pink. Fecalith: Lumen contains soft fecal material. Additional: None. [employer] sections are submitted in (E1). F. The specimen, labeled and designated "Shorts, portion of omentum," is received in formalin and consists of 2 fragmented portions of yellow-mart fatty omentum and mart-pink membranous tissue (6.5 x 4.0 x 2.4 cm and 7.4 x 5.5 x 2.7 cm). The tissue is serially sectioned to reveal yellow-mart fatty cut surfaces and a white-mart to red-brown soft to fibrous tissue. [employer] sections are submitted in cassette F1-F4. AC (under the direct supervision of a pathologist) The Gross Description was prepared using a voice recognition system. The report was reviewed for accuracy; however, sound-alike word errors, addition and/or deletions may occur. If there is any question about this report, please contact Client Services. PERFORMING LABORATORY: The technical component was performed by [facility], [address] [place] [id number] (CLIA# [id number]). The professional interpretation was performed by [facility], [facility], [address] [place] [address] (CLIA#: [id number]). Diagnostician: Kip Razo DO PATIENT NAME: RASHID CRUZ PATHOLOGY DATE OF : 84 REPORT #: [id number] PHYSICIAN: [facility] PCP: NO PRIMARY CARE PHYSICIAN REPORT IS CONFIDENTIAL AND NOT TO BE RELEASED WITHOUT AUTHORIZATION [address] [address] Signed Pathologist Electronically Signed 09/23/2022 Copies: ~ PATIENT NAME: RASHID CRUZ PATHOLOGY DATE OF : 84 REPORT #: [id number] PHYSICIAN: [facility] PCP: NO PRIMARY CARE PHYSICIAN REPORT IS CONFIDENTIAL AND NOT TO BE RELEASED WITHOUT AUTHORIZATION
== END 2022-09-22 18:05 | disposition home or self-care (01) | DRG 330 ==
LOC: ED 10:11 → MS 13:58 → CCU 09-18 21:46 → MS 09-19 14:07
PROVIDERS: ADMIT Surgery; ATTEND Surgery
PROC: 0UT70ZZ Resection of Bilateral Fallopian Tubes, Open Approach (ICD-10-PCS; 2022-09-18)
PROC: 0UB90ZZ Excision of Uterus, Open Approach (ICD-10-PCS; 2022-09-18)
PROC: 0WQF0ZZ Repair Abdominal Wall, Open Approach (ICD-10-PCS; 2022-09-18)
PROC: 0UT20ZZ Resection of Bilateral Ovaries, Open Approach (ICD-10-PCS; 2022-09-18)
PROC: 0DBU0ZZ Excision of Omentum, Open Approach (ICD-10-PCS; 2022-09-18)
PROC: 0DBB0ZZ Excision of Ileum, Open Approach (ICD-10-PCS; 2022-09-18)
PROC: 0T9B70Z Drainage of Bladder with Drainage Device, Via Natural or Artificial Opening (ICD-10-PCS; 2022-09-18)
PROC: 0D9670Z Drainage of Stomach with Drainage Device, Via Natural or Artificial Opening (ICD-10-PCS; 2022-09-18)
PROC: 0D1B0Z4 Bypass Ileum to Cutaneous, Open Approach (ICD-10-PCS; principal; 2022-09-18 12:00)
DX: K43.0 Incisional hernia with obstruction, without gangrene (principal); K56.52 Intestinal adhesions [bands] with complete obstruction; K36 Other appendicitis; F17.210 Nicotine dependence, cigarettes, uncomplicated; Z20.822 Contact with and (suspected) exposure to COVID-19; N70.11 Chronic salpingitis; Z90.49 Acquired absence of other specified parts of digestive tract; Z98.890 Other specified postprocedural states; Z98.891 History of uterine scar from previous surgery
CPT/HCPCS: 00832; 36415; 71045; 74018; 74177; 76942; 80048; 80053; 81001; 83690; 84484; 85025; 85610; 85730; 86304; 86850; 86900; 86901; 87502; 93005; 93010; A9270; C9113; J0131; J0330; J0690; J0780; J1100; J1644; J1790; J1885; J1940; J2001; J2270; J2405; J2704; J2795; J3475; J3480; J7060; J7121; U0003